=== PATIENT | female | born 1955 | race Caucasian/White ===

== ENCOUNTER 2022-01-07 10:00 | Outpatient (RCR) | payer BC, SELFPAY | END 2022-01-07 13:34 | disposition home or self-care (01) | PROVIDERS: Visit Provider Orthopaedic Surgery | DX: M25.551 Pain in right hip (principal); Z51.89 Encounter for other specified aftercare | CPT/HCPCS: 97110; 97112; 97116; 97140; 97162 ==

== ENCOUNTER 2022-07-15 13:51 | Outpatient (CLI) | payer BC, SELFPAY ==
--- NOTE | 2022-07-15 14:00 | CRLHL7_ITS ---
For Patients: As a result of the Cures Act, medical imaging exams and procedure reports are released immediately into your electronic medical record. You may view this report before your referring provider. If you have questions, please contact your health care provider. BILATERAL SCREENING MAMMOGRAM WITH COMPUTER-AIDED DETECTION AND TOMOSYNTHESIS TECHNIQUE: CC and MLO views were obtained. These mammographic images have been obtained using full-field digital technique. These mammographic images were interpreted with the benefit of computer-aided detection. Breast Tomosynthesis was used in this interpretation. COMPARISON FILM: 04/04/21, 03/28/20, 12/28/18. FINDINGS: The breasts are heterogeneously dense, which may obscure small masses IMPRESSION: There is no radiographic evidence for malignancy. ASSESSMENT: BI-RADS Category 2: Benign RECOMMENDATION: Routine screening mammogram in 1 year. A lay language report of this examination will be provided to the patient. ROB JIMENEZ M.D. Diagnostic/Nuclear Medicine Radiologist [email or web address] DIMITRI:[email or web address] Transcribed: 1:14 p.mClaudia devine/Dictated by: Rob Jimenez MD @ 07/16/2022 8:27:00 AM (Electronically Signed)
== END 2022-07-15 13:52 | disposition home or self-care (01) ==
DX: Z12.31 Encounter for screening mammogram for malignant neoplasm of breast (principal); R92.2 Inconclusive mammogram
CPT/HCPCS: 77063; 77067

== ENCOUNTER 2023-01-05 15:18 | Emergency (ER) | payer BC, SELFPAY ==
[2023-01-05] VITALS (35 sets, daily range): BP systolic 77–126; BP diastolic 32–77; PULSE 77–147; RESP 10–47; TEMP 36.7–37.2; O2SAT 93–100; BMI 21.5
--- NOTE | 2023-01-05 15:46 | ED_ITS ---
HPI - General Adult General Date Seen: 01/05/23 <Laura Nagy MD - Last Filed: 01/05/23 19:16> Chief complaint: Fever <Laura Nagy MD - Last Filed: 01/05/23 19:16> Stated complaint: Eyeball pain, jaw pain, nausea <Laura Nagy MD - Last Filed: 01/05/23 19:16> Time Seen by Provider: 01/05/23 15:28 <Laura Nagy MD - Last Filed: 01/05/23 19:16> Source: patient <Laura Nagy MD - Last Filed: 01/05/23 19:16> Mode of arrival: ambulatory <Laura Nagy MD - Last Filed: 01/05/23 19:16> Limitations: no limitations <Laura Nagy MD - Last Filed: 01/05/23 19:16> History of Present Illness HPI narrative: Patient is a 67-year-old woman who presents for evaluation of eye pain and body aches which have been present for couple of days. She says it has been keeping her up at night. She notes a history of diabetes, some liver function abnormalities with a follow-up biopsy which she says was unremarkable. She has a history of pain for which she takes hydrocodone prescribed by her primary doctor who was at a clinic in [place]. She says she took hydrocodone earlier today in the form of Vicodin, she does tell me that she can not take Tylenol because of her liver, but does take Vicodin. She has not had a fever that she is aware of, denies respiratory symptoms, has pain with movement of her eyes bilaterally, denies any diplopia there is no eye redness or swelling. She does note some photophobia. No visual changes. No joint swelling or redness, just generalized aches in multiple joints. Her jaw hurts on both sides as well. <Laura Nagy MD - Last Filed: 01/05/23 19:16> Related Data Home medications: Home Medications Medication Instructions Recorded Confirmed acetaminophen 500 mg tablet 500 mg PO PRN 01/29/22 01/29/22 alprazolam 0.5 mg tablet 0.5 mg PO .Bedtime as needed PRN 01/29/22 01/29/22 amitriptyline 25 mg tablet 25 mg PO .Bedtime 01/29/22 01/29/22 ascorbic acid (vitamin C) 500 mg 500 mg PO DAILY 01/29/22 01/29/22 tablet aspirin 81 mg chewable tablet 81 mg PO BID 01/29/22 01/29/22 atorvastatin 80 mg tablet 80 mg PO .Bedtime 01/29/22 01/29/22 bupropion HCl 75 mg tablet mg PO BID 01/29/22 01/29/22 calcium carbonate 500 mg calcium 500 mg PO DAILY 01/29/22 01/29/22 (1,250 mg) tablet celecoxib 200 mg capsule 200 mg PO DAILY 01/29/22 01/29/22 cholecalciferol (vitamin D3) 25 PO DAILY 01/29/22 01/29/22 mcg (1,000 unit) tablet cyanocobalamin (vitamin B-12) 1,000 mcg PO .2X/Week 01/29/22 01/29/22 1,000 mcg tablet ferrous sulfate 325 mg (65 mg 325 mg PO DAILY 01/29/22 01/29/22 iron) tablet levothyroxine 125 mcg tablet 125 mcg PO DAILY 01/29/22 01/29/22 lisinopril 20 mg tablet 20 mg PO DAILY 01/29/22 01/29/22 metformin 500 mg tablet 500 mg PO 01/29/22 01/29/22 Previous Rx's Medication Instructions Recorded celecoxib 100 mg capsule 100 mg PO BID PRN pain #90 caps 01/29/22 rivaroxaban 20 mg tablet 20 mg PO DAILY #30 tabs 01/05/23 <Laura Nagy MD - Last Filed: 01/05/23 19:16> Allergies/adverse reactions: Allergies Allergy/AdvReac Type Severity Reaction Status Date / Time No Known Drug Allergies Allergy Verified 01/27/22 08:25 <Laura Nagy MD - Last Filed: 01/05/23 19:16> Review of Systems Status of ROS: Reports: 10 or more systems reviewed and unremarkable except as noted in History and below <Laura Nagy MD - Last Filed: 01/05/23 19:16> [facility] Medical History: Medical History Tobacco use (10/18/06) ?Z72.0 - Tobacco use (ICD-10) Seasonal allergies (10/18/06) ?J30.2 - Other seasonal allergic rhinitis (ICD-10) Ankle fracture, right (10/18/06) ?S82.891A - Other fracture of right lower leg, initial encounter for closed fracture (ICD-10) Hyperlipidemia (10/18/06) ?E78.5 - Hyperlipidemia, unspecified (ICD-10) Fracture of right femur ?S72.91XA - Unspecified fracture of right femur, initial encounter for closed fracture (ICD-10) Elevated liver function tests ?R79.89 - Other specified abnormal findings of blood chemistry (ICD-10) Constipation ?K59.00 - Constipation, unspecified (ICD-10) Back pain ?M54.9 - Dorsalgia, unspecified (ICD-10) Abdominal pain ?R10.9 - Unspecified abdominal pain (ICD-10) Liver failure ?K72.90 - Hepatic failure, unspecified without coma (ICD-10) Anxiety ?F41.9 - Anxiety disorder, unspecified (ICD-10) Depression ?F32.A - Depression, unspecified (ICD-10) Diabetes ?E11.9 - Type 2 diabetes mellitus without complications (ICD-10) Hypertension ?I10 - Essential (primary) hypertension (ICD-10) Hypothyroid ?E03.9 - Hypothyroidism, unspecified (ICD-10) <Laura Nagy MD - Last Filed: 01/05/23 19:16> Surgical History: Surgical History History of open reduction and internal fixation (ORIF) procedure ?Z98.890 - Other specified postprocedural states (ICD-10) History of gastric bypass ?Z98.84 - Bariatric surgery status (ICD-10) History of cataract surgery ?Z98.49 - Cataract extraction status, unspecified eye (ICD-10) H/O: hysterectomy ?Z90.710 - Acquired absence of both cervix and uterus (ICD-10) History of cholecystectomy ?Z90.49 - Acquired absence of other specified parts of digestive tract (ICD- 10) Hx of appendectomy ?Z90.49 - Acquired absence of other specified parts of digestive tract (ICD- 10) <Laura Nagy MD - Last Filed: 01/05/23 19:16> Social History: Social History Smoking Status: Former smoker Non-prescribed substance use: denies use <Laura Nagy MD - Last Filed: 01/05/23 19:16> Exam Narrative: Exam Narrative: Vital signs as noted above. In general, an alert, nontoxic woman, seems little agitated. Head: Normocephalic, atraumatic. Eyes: Pupils are equal reactive. Extraocular movements are full though she complains of pain. Conjunctivae are normal, no injection or discharge. Lids and surrounding tissues are normal. ENT: Mucous membranes are moist. Throat is normal. Cheeks are slightly damián. Dentition intact. No trismus. No significant tenderness. Neck: Supple without lymphadenopathy. Heart: Regular rate and rhythm. No murmur or rub. Lungs: Clear bilaterally. No increased work of breathing, crackles or wheezes. Abdomen: Soft and nontender. No organomegaly. Extremities: Well perfused. No edema. No calf tenderness. Pulses intact. No evidence of inflammatory arthritis. Neurologic: Patient is alert and oriented to person and place. Speech is fluent. Face is symmetric. Moves all extremities equally. Affect: Agitated. Skin: Warm and dry. Well perfused. No rash or lesion. <Laura Nagy MD - Last Filed: 01/05/23 19:16> Const: Vital Signs, click to edit/add: Vital Signs - 24 hr 01/05/23 15:25 01/05/23 16:22 01/05/23 16:26 Temperature 99.0 F 99.0 F Pulse Rate 138 H Pulse Rate [Right Pulse Oximeter] 92 147 H Respiratory Rate 18 16 Blood Pressure Blood Pressure [Ri ght Upper Arm] 105/69 101/73 Pulse Oximetry 97 96 94 Oxygen Delivery Me thod Room Air Oxygen Flow Rate 01/05/23 16:30 01/05/23 16:33 01/05/23 16:45 Temperature Pulse Rate 136 H 134 H Pulse Rate [Right Pulse Oximeter] Respiratory Rate Blood Pressure Blood Pressure [Ri ght Upper Arm] Pulse Oximetry 95 96 95 Oxygen Delivery Me thod Oxygen Flow Rate 01/05/23 16:46 01/05/23 16:52 01/05/23 17:00 Temperature Pulse Rate 121 H 119 H 126 H Pulse Rate [Right Pulse Oximeter] Respiratory Rate Blood Pressure 103/66 84/63 L 81/45 L Blood Pressure [Ri ght Upper Arm] Pulse Oximetry 95 97 93 Oxygen Delivery Me thod Oxygen Flow Rate 01/05/23 17:01 01/05/23 17:15 01/05/23 17:22 Temperature 98.0 F Pulse Rate 113 H 123 H Pulse Rate [Right Pulse Oximeter] Respiratory Rate Blood Pressure Blood Pressure [Ri ght Upper Arm] Pulse Oximetry 95 94 Oxygen Delivery Me thod Oxygen Flow Rate 01/05/23 17:26 01/05/23 17:30 01/05/23 17:34 Temperature Pulse Rate 120 H 121 H Pulse Rate [Right Pulse Oximeter] Respiratory Rate 20 Blood Pressure 78/66 L 79/53 L Blood Pressure [Ri ght Upper Arm] Pulse Oximetry 94 94 Oxygen Delivery Me thod Oxygen Flow Rate 01/05/23 17:35 01/05/23 17:45 01/05/23 17:47 Temperature Pulse Rate 123 H Pulse Rate [Right Pulse Oximeter] Respiratory Rate 27 H 26 H 25 H Blood Pressure 104/68 77/32 L Blood Pressure [Ri ght Upper Arm] Pulse Oximetry 97 Oxygen Delivery Me thod Oxygen Flow Rate 01/05/23 17:48 01/05/23 17:53 01/05/23 17:54 Temperature Pulse Rate 135 H 129 H Pulse Rate [Right Pulse Oximeter] Respiratory Rate 24 17 Blood Pressure 113/55 L Blood Pressure [Ri ght Upper Arm] Pulse Oximetry 98 97 97 Oxygen Delivery Me thod Nasal Cannula Oxygen Flow Rate 4 01/05/23 17:56 01/05/23 18:00 01/05/23 18:01 Temperature Pulse Rate 133 H 128 H 130 H Pulse Rate [Right Pulse Oximeter] Respiratory Rate 11 L 26 H 23 Blood Pressure 104/71 97/57 L Blood Pressure [Ri ght Upper Arm] Pulse Oximetry 97 97 97 Oxygen Delivery Me thod Oxygen Flow Rate 01/05/23 18:06 01/05/23 18:11 01/05/23 18:13 Temperature Pulse Rate 140 H 129 H 116 H Pulse Rate [Right Pulse Oximeter] Respiratory Rate 26 H 25 H 25 H Blood Pressure 85/63 L 77/54 L 85/59 L Blood Pressure [Ri ght Upper Arm] Pulse Oximetry 98 98 98 Oxygen Delivery Me thod Oxygen Flow Rate 01/05/23 18:15 01/05/23 18:17 01/05/23 18:21 Temperature Pulse Rate 129 H 86 88 Pulse Rate [Right Pulse Oximeter] Respiratory Rate 10 L 18 47 H Blood Pressure 126/75 121/77 Blood Pressure [Ri ght Upper Arm] Pulse Oximetry 98 97 100 Oxygen Delivery Me thod Oxygen Flow Rate 01/05/23 18:22 01/05/23 18:26 01/05/23 18:30 Temperature Pulse Rate 86 81 79 Pulse Rate [Right Pulse Oximeter] Respiratory Rate 31 H 19 14 Blood Pressure 96/73 Blood Pressure [Ri ght Upper Arm] Pulse Oximetry 100 100 99 Oxygen Delivery Me thod Oxygen Flow Rate 01/05/23 18:31 01/05/23 18:36 Temperature Pulse Rate 78 77 Pulse Rate [Right Pulse Oximeter] Respiratory Rate 14 Blood Pressure 110/67 97/71 Blood Pressure [Ri ght Upper Arm] Pulse Oximetry 99 98 Oxygen Delivery Me thod Oxygen Flow Rate <Laura Nagy MD - Last Filed: 01/05/23 19:16> Vital Signs, click to edit/add: Vital Signs - 24 hr 01/05/23 15:25 01/05/23 16:22 01/05/23 16:26 Temperature 99.0 F 99.0 F Pulse Rate 138 H Pulse Rate [Right Pulse Oximeter] 92 147 H Respiratory Rate 18 16 Blood Pressure Blood Pressure [Ri ght Upper Arm] 105/69 101/73 Pulse Oximetry 97 96 94 Oxygen Delivery Me thod Room Air Oxygen Flow Rate 01/05/23 16:30 01/05/23 16:33 01/05/23 16:45 Temperature Pulse Rate 136 H 134 H Pulse Rate [Right Pulse Oximeter] Respiratory Rate Blood Pressure Blood Pressure [Ri ght Upper Arm] Pulse Oximetry 95 96 95 Oxygen Delivery Me thod Oxygen Flow Rate 01/05/23 16:46 01/05/23 16:52 01/05/23 17:00 Temperature Pulse Rate 121 H 119 H 126 H Pulse Rate [Right Pulse Oximeter] Respiratory Rate Blood Pressure 103/66 84/63 L 81/45 L Blood Pressure [Ri ght Upper Arm] Pulse Oximetry 95 97 93 Oxygen Delivery Me thod Oxygen Flow Rate 01/05/23 17:01 01/05/23 17:15 01/05/23 17:22 Temperature 98.0 F Pulse Rate 113 H 123 H Pulse Rate [Right Pulse Oximeter] Respiratory Rate Blood Pressure Blood Pressure [Ri ght Upper Arm] Pulse Oximetry 95 94 Oxygen Delivery Me thod Oxygen Flow Rate 01/05/23 17:26 01/05/23 17:30 01/05/23 17:34 Temperature Pulse Rate 120 H 121 H Pulse Rate [Right Pulse Oximeter] Respiratory Rate 20 Blood Pressure 78/66 L 79/53 L Blood Pressure [Ri ght Upper Arm] Pulse Oximetry 94 94 Oxygen Delivery Me thod Oxygen Flow Rate 01/05/23 17:35 01/05/23 17:45 01/05/23 17:47 Temperature Pulse Rate 123 H Pulse Rate [Right Pulse Oximeter] Respiratory Rate 27 H 26 H 25 H Blood Pressure 104/68 77/32 L Blood Pressure [Ri ght Upper Arm] Pulse Oximetry 97 Oxygen Delivery Me thod Oxygen Flow Rate 01/05/23 17:48 01/05/23 17:53 01/05/23 17:54 Temperature Pulse Rate 135 H 129 H Pulse Rate [Right Pulse Oximeter] Respiratory Rate 24 17 Blood Pressure 113/55 L Blood Pressure [Ri ght Upper Arm] Pulse Oximetry 98 97 97 Oxygen Delivery Me thod Nasal Cannula Oxygen Flow Rate 4 01/05/23 17:56 01/05/23 18:00 01/05/23 18:01 Temperature Pulse Rate 133 H 128 H 130 H Pulse Rate [Right Pulse Oximeter] Respiratory Rate 11 L 26 H 23 Blood Pressure 104/71 97/57 L Blood Pressure [Ri ght Upper Arm] Pulse Oximetry 97 97 97 Oxygen Delivery Me thod Oxygen Flow Rate 01/05/23 18:06 01/05/23 18:11 01/05/23 18:13 Temperature Pulse Rate 140 H 129 H 116 H Pulse Rate [Right Pulse Oximeter] Respiratory Rate 26 H 25 H 25 H Blood Pressure 85/63 L 77/54 L 85/59 L Blood Pressure [Ri ght Upper Arm] Pulse Oximetry 98 98 98 Oxygen Delivery Me thod Oxygen Flow Rate 01/05/23 18:15 01/05/23 18:17 01/05/23 18:21 Temperature Pulse Rate 129 H 86 88 Pulse Rate [Right Pulse Oximeter] Respiratory Rate 10 L 18 47 H Blood Pressure 126/75 121/77 Blood Pressure [Ri ght Upper Arm] Pulse Oximetry 98 97 100 Oxygen Delivery Me thod Oxygen Flow Rate 01/05/23 18:22 01/05/23 18:26 01/05/23 18:30 Temperature Pulse Rate 86 81 79 Pulse Rate [Right Pulse Oximeter] Respiratory Rate 31 H 19 14 Blood Pressure 96/73 Blood Pressure [Ri ght Upper Arm] Pulse Oximetry 100 100 99 Oxygen Delivery Me thod Oxygen Flow Rate 01/05/23 18:31 01/05/23 18:36 Temperature Pulse Rate 78 77 Pulse Rate [Right Pulse Oximeter] Respiratory Rate 14 Blood Pressure 110/67 97/71 Blood Pressure [Ri ght Upper Arm] Pulse Oximetry 99 98 Oxygen Delivery Me thod Oxygen Flow Rate <Brennan Warren MD - Last Filed: 01/05/23 19:00> Documenting provider has reviewed patient's vital signs: yes <Laura Nagy MD - Last Filed: 01/05/23 19:16> Course Course ED Course: At the time of my initial exam, patient's heart was regular, without tachycardia. I ordered an EKG at the time of her EKG she had gone into atrial fibrillation with a rapid ventricular rate of 147 beats per minute. Blood pressure at that time was about 100 systolic. I did try rate control with some diltiazem, rate came down to the 120s but her blood pressure also was down in the 80s after that. She felt fine, she does have the ability to tell when she goes into atrial fibrillation, she says she has had this before but has never lasted long enough for her to go in to be seen for it. She has talked with her primary doctor about it in the past and was told if she ever felt the symptoms again that she should come into the ER. She has not noticed symptoms for at least a few months. With regard to her eye pain and body aches, visual acuity was checked and was 20 30 in both eyes. Her white blood cell count is normal at 8.27, hemoglobin is normal, CRP was 1.1 and sed rate was 7. COVID was negative. Metabolic panel normal aside from a CO2 of 18. She had a L of normal saline and Toradol. Body aches are improved although she says her eye still hurt when she looks around. Notably, she has no visual changes, she does not have any diplopia, and does not have any findings on exam. I did talk with Dr. Juanito Parish was on-call for [facility]. She agrees that at this point there does not appear to be a clear indication for imaging. I have reviewed all this with the patient and stressed that if she has worsening, develops double vision, redness of the eyes, blurred vision etcetera she needs to come back. Otherwise, [facility] will call her tomorrow to get her in to clinic on . She remained in atrial fibrillation with a rapid rate. Given that time of onset was clearly known, I discussed the option of cardioversion versus observation for couple of hours. She opted for cardioversion. Risks and benefits were discussed including over-sedation, need for airway management, aspiration, failure to convert. She agreed to proceed, consent was signed. Dr. Warren provided sedation, please see his note. We opted to use etomidate given that her blood pressure was still on the low side. She was cardioverted at 200 joules, biphasic synchronized and converted without difficulty to normal sinus rhythm with a rate in the 80s. An EKG was repeated, there is quite a bit of artifact but she is clearly in sinus and no acute ST segment changes are seen. She is feeling well at this time, and is comfortable with discharge. Etiology of her body aches and eye pain is unclear at this time though it may be viral. In the setting of normal inflammatory markers I do not think this represents temporal arteritis or likely connective tissue disorder. With regard to her atrial fibrillation and cardioversion I recommended that we at least start her on anticoagulation, her chads Vasc score is 4, and she can discuss that further with her primary doctor when she sees her next Wednesday. <Laura Nagy MD - Last Filed: 01/05/23 19:16> Vital Signs Vital signs: Initial Vital Signs Temperature 99.0 F 01/05/23 15:25 Temperature Source Temporal Artery Scan 01/05/23 15:25 Pulse Rate 92 01/05/23 15:25 Respiratory Rate 18 01/05/23 15:25 Blood Pressure 105/69 01/05/23 15:25 Blood Pressure Mean 81 01/05/23 15:25 Blood Pressure Position Sitting 01/05/23 15:25 Pulse Oximetry 97 01/05/23 15:25 Oxygen Delivery Method Room Air 01/05/23 15:25 Vital Signs Temperature 99.0 F 01/05/23 15:25 Pulse Rate 92 01/05/23 15:25 Respiratory Rate 18 01/05/23 15:25 Blood Pressure 105/69 01/05/23 15:25 Pulse Oximetry 97 01/05/23 15:25 Oxygen Delivery Method Room Air 01/05/23 15:25 Temperature 98.0 F 01/05/23 17:22 Pulse Rate 77 01/05/23 18:36 Respiratory Rate 14 01/05/23 18:31 Blood Pressure 97/71 01/05/23 18:36 Pulse Oximetry 98 01/05/23 18:36 Oxygen Delivery Method Nasal Cannula 01/05/23 17:54 Oxygen Flow Rate 4 01/05/23 17:54 <Laura Nagy MD - Last Filed: 01/05/23 19:16> Initial Vital Signs Temperature 99.0 F 01/05/23 15:25 Temperature Source Temporal Artery Scan 01/05/23 15:25 Pulse Rate 92 01/05/23 15:25 Respiratory Rate 18 01/05/23 15:25 Blood Pressure 105/69 01/05/23 15:25 Blood Pressure Mean 81 01/05/23 15:25 Blood Pressure Position Sitting 01/05/23 15:25 Pulse Oximetry 97 01/05/23 15:25 Oxygen Delivery Method Room Air 01/05/23 15:25 Vital Signs Temperature 99.0 F 01/05/23 15:25 Pulse Rate 92 01/05/23 15:25 Respiratory Rate 18 01/05/23 15:25 Blood Pressure 105/69 01/05/23 15:25 Pulse Oximetry 97 01/05/23 15:25 Oxygen Delivery Method Room Air 01/05/23 15:25 Temperature 98.0 F 01/05/23 17:22 Pulse Rate 77 01/05/23 18:36 Respiratory Rate 14 01/05/23 18:31 Blood Pressure 97/71 01/05/23 18:36 Pulse Oximetry 98 01/05/23 18:36 Oxygen Delivery Method Nasal Cannula 01/05/23 17:54 Oxygen Flow Rate 4 01/05/23 17:54 <Brennan Warren MD - Last Filed: 01/05/23 19:00> Medical Decision Making Lab Data Labs: Lab Results 01/05/23 01/05/23 01/05/23 Range/Units 14:45 15:50 15:55 WBC 8.27 (4.50-11.00) K/uL RBC 4.58 (4.00-5.20) m/uL Hgb 14.6 (12.0-16.0) gm/dL Hct 44.2 (33.0-51.0) % MCV 97 (80-100) fL MCH 32 (26-34) pg MCHC 33 (32-36) gm/dL RDW Coeff of Jose 12.9 (11.5-15.5) % Plt Count 279 (140-440) K/uL Neut % (Auto) 83.4 H (42.0-72.0) % Lymph % (Auto) 10.8 L (20-44) % [place] % (Auto) 4.7 (0.0-11.0) % Eos % (Auto) 0.7 (0.0-7.0) % Baso % (Auto) 0.2 (0.0-3.0) % Neut # (Auto) 6.90 (1.7-7.0) K/uL Lymph # (Auto) 0.90 (0.90-2.90) K/uL [place] # (Auto) 0.40 (0.00-0.90) K/UL Eos # (Auto) 0.06 (0.00-0.50) K/uL Baso # (Auto) 0.02 (0.00-0.30) K/uL Abs Immat Gran (auto) 0.02 (0.00-0.30) K/uL Imm/Tot Granulo (auto) 0.2 % ESR 7 (2-20) mm/hr Sodium 135 (135-149) mmol/L Potassium 3.6 (3.6-5.1) mmol/L Chloride 104 (96-114) mmol/L Carbon Dioxide 18 L (20-32) mmol/L Anion Gap 13 (7-15) mEq/L BUN 16 (7-30) mg/dL Creatinine 0.5 (0.5-1.5) mg/dL Estimated Creat Clear 58.64 Estimated GFR 103 ml/min Glucose 126 H (60-115) mg/dL Calcium 8.7 (8.4-10.6) mg/dL C-Reactive Protein 1.1 H (0.5-1.0) mg/dL SARS-CoV-2 (PCR) Negative SARS-CoV-2 (Negative) Influenza Type A (PCR) Negative PCR FLU A (Negative) Influenza Type B (PCR) Negative PCR FLU B (Negative) RSV (PCR) Negative PCR RSV (Negative) POC Troponin I 0.00 L (0.01-0.04) ng/ml <Laura Nagy MD - Last Filed: 01/05/23 19:16> Lab Results 01/05/23 01/05/23 01/05/23 Range/Units 14:45 15:50 15:55 WBC 8.27 (4.50-11.00) K/uL RBC 4.58 (4.00-5.20) m/uL Hgb 14.6 (12.0-16.0) gm/dL Hct 44.2 (33.0-51.0) % MCV 97 (80-100) fL MCH 32 (26-34) pg MCHC 33 (32-36) gm/dL RDW Coeff of Jose 12.9 (11.5-15.5) % Plt Count 279 (140-440) K/uL Neut % (Auto) 83.4 H (42.0-72.0) % Lymph % (Auto) 10.8 L (20-44) % [place] % (Auto) 4.7 (0.0-11.0) % Eos % (Auto) 0.7 (0.0-7.0) % Baso % (Auto) 0.2 (0.0-3.0) % Neut # (Auto) 6.90 (1.7-7.0) K/uL Lymph # (Auto) 0.90 (0.90-2.90) K/uL [place] # (Auto) 0.40 (0.00-0.90) K/UL Eos # (Auto) 0.06 (0.00-0.50) K/uL Baso # (Auto) 0.02 (0.00-0.30) K/uL Abs Immat Gran (auto) 0.02 (0.00-0.30) K/uL Imm/Tot Granulo (auto) 0.2 % ESR 7 (2-20) mm/hr Sodium 135 (135-149) mmol/L Potassium 3.6 (3.6-5.1) mmol/L Chloride 104 (96-114) mmol/L Carbon Dioxide 18 L (20-32) mmol/L Anion Gap 13 (7-15) mEq/L BUN 16 (7-30) mg/dL Creatinine 0.5 (0.5-1.5) mg/dL Estimated Creat Clear 58.64 Estimated GFR 103 ml/min Glucose 126 H (60-115) mg/dL Calcium 8.7 (8.4-10.6) mg/dL C-Reactive Protein 1.1 H (0.5-1.0) mg/dL SARS-CoV-2 (PCR) Negative SARS-CoV-2 (Negative) Influenza Type A (PCR) Negative PCR FLU A (Negative) Influenza Type B (PCR) Negative PCR FLU B (Negative) RSV (PCR) Negative PCR RSV (Negative) POC Troponin I 0.00 L (0.01-0.04) ng/ml <Brennan Warren MD - Last Filed: 01/05/23 19:00> Discharge Plan Discharge Clinical Impression: Eye pain, Body aches, Atrial fibrillation with rapid ventricular response <Laura Nagy MD - Last Filed: 01/05/23 19:16> Patient Disposition: Home, Self-Care <Laura Nagy MD - Last Filed: 01/05/23 19:16> Condition: Improved <Laura Nagy MD - Last Filed: 01/05/23 19:16> Instructions: A-fib (Atrial Fibrillation) (ED), Eye Pain (ED) <Laura Nagy MD - Last Filed: 01/05/23 19:16> Additional Instructions: Someone from the Eye Clinic should be calling tomorrow to arrange follow- up for recheck of your eyes. With regard here atrial fibrillation, I would recommend that we have you on a blood thinner for at least the next month. I have prescribed this for you. You can discuss further anticoagulation with your primary doctor at your next visit. If you have recurrent palpitations, chest pain, shortness of breath or other worsening return to the emergency department at any time. Your visual acuity today was 20/30 in both eyes peer <Laura Nagy MD - Last Filed: 01/05/23 19:16> Prescriptions: New rivaroxaban 20 mg tablet 20 mg PO DAILY Qty: 30 2RF Rx Instructions: must administer with evening meal No Action cholecalciferol (vitamin D3) 25 mcg (1,000 unit) tablet PO DAILY bupropion HCl 75 mg tablet PO BID levothyroxine 125 mcg tablet 125 mcg PO DAILY ferrous sulfate 325 mg (65 mg iron) tablet 325 mg PO DAILY ascorbic acid (vitamin C) 500 mg tablet 500 mg PO DAILY calcium carbonate 500 mg calcium (1,250 mg) tablet 500 mg PO DAILY amitriptyline 25 mg tablet 25 mg PO .Bedtime alprazolam 0.5 mg tablet 0.5 mg PO .Bedtime as needed PRN cyanocobalamin (vitamin B-12) 1,000 mcg tablet 1,000 mcg PO .2X/Week lisinopril 20 mg tablet 20 mg PO DAILY atorvastatin 80 mg tablet 80 mg PO .Bedtime metformin 500 mg tablet 500 mg PO celecoxib 200 mg capsule 200 mg PO DAILY aspirin 81 mg tablet,chewable 81 mg PO BID Rx Instructions: Start aspirin after rivaroxaban is done in 3 days acetaminophen 500 mg tablet 500 mg PO PRN celecoxib 100 mg capsule 100 mg PO BID PRN (Reason: pain) Qty: 90 0RF <Laura Nagy MD - Last Filed: 01/05/23 19:16> Follow Up/Referrals: Provider,Not a Local [Primary Care Provider] - <Laura Nagy MD - Last Filed: 01/05/23 19:16> [facility] <Laura Nagy MD - Last Filed: 01/05/23 19:16> Procedures Procedural Sedation Pre procedure diagnosis: Atrial fibrillation with RVR and hypotension <Brennan Warren MD - Last Filed: 01/05/23 19:00> Post procedure diagnosis: Sinus rhythm <Brennan Warren MD - Last Filed: 01/05/23 19:00> Verification/time out: correct patient and correct procedure <Brennan Warren MD - Last Filed: 01/05/23 19:00> Name of person perfmorming the procedure: Brennan Warren <Brennan Warren MD - Last Filed: 01/05/23 19:00> Sedation provider same as procedural provider: No <Brennan Warren MD - Last Filed: 01/05/23 19:00> Indication: other (Electrical cardioversion) <Brennan Warren MD - Last Filed: 01/05/23 19:00> Presedation Evaluation: Constitutional: Appears well-developed and well-nourished. Alert. Conversant. Non toxic. HENT: Head: Atraumatic. Nose: Nose normal. Mouth/Throat: Oral mucosa is clear and moist. no trismus. Pharynx normal. Tonsils symmetric. No tonsillar enlargement, erythema, or exudate. Mallampati class 2 Eyes: Conjunctivae normal. EOM normal. Pupils equal, round, and reactive to l ight. No scleral icterus. Neck: Normal range of motion. Neck supple. No tracheal deviation present. Normal range of motion. Cardiovascular: Tachycardic, irregularly irregular rhythm. No gallop. No friction rub. No murmur heard. Symmetric radial artery pulses . Normal capillary refill in toes and fingers. Pulmonary/Chest: Effort normal. No stridor. No respiratory distress. No wheezes. No rales. No rhonchi . No tenderness. g. Musculoskeletal: RUE: Normal range of motion. No tenderness. No deformity LUE: Normal range of motion. No tenderness. No deformity RLE: Normal range of motion. No edema. No tenderness. No deformity LLE: Normal range of motion. No edema. No tenderness. No deformity Lymph: No cervical adenopathy. Neurological: Alert and oriented to person, place, and time. Normal strength. CN II-VII intact. No sensory deficit. GCS eye subscore is 4. GCS verbal subscore is 5. GCS motor subscore is 6. Psychiatric: Normal mood. Normal affect. <Brennan Warren MD - Last Filed: 01/05/23 19:00> Time of Last PO Intake: 14:00 <Brennan Warren MD - Last Filed: 01/05/23 19:00> Mallampati classification: II. soft palate, fauces, uvula visible <Brennan Warren MD - Last Filed: 01/05/23 19:00> Preparation: bus driver/monitor applied, pulse oximeter, capnometry used, supplemental O2 applied, reversal agents at bedside, suction/airway equipment at bedside and IV secured <Brennan Warren MD - Last Filed: 01/05/23 19:00> IV Etomidate dose (mg): 20 <Brennan Warren MD - Last Filed: 01/05/23 19:00> Patient Tolerated Procedure: well and no complications <Brennan Warren MD - Last Filed: 01/05/23 19:00> Complications: none <Brennan Warren MD - Last Filed: 01/05/23 19:00> Interventions: airway repositioned <Brennan Warren MD - Last Filed: 01/05/23 19:00>
--- OUTSIDE RECORDS SUMMARY | 2023-01-05 15:49 | XMS_ITS | Patient Health Record ---
Author Name Unknown Organization [facility] S Address [address] [id number] Care Team Providers Care Sharepoint Application Developer Name Role Phone Herminia Rabago PA-C Primary Care Provider ALLERGIES No Known Allergies RESULTS Component Value Reference Range Notes GLYCOSYLATED HGB A1C Reviewed date:01/28/2022 09:43:41 AM Interpretation:6.2 Performing Lab: Notes/Report: HGB A1C 6.2 4.2-6.1 % Ultrasound : Abdominal Aorta Screening (AAA) Reviewed date:07/14/2022 02:23:46 PM Interpretation:infrarenal aortic aneurysm, repeat in 3 years Performing Lab: Notes/Report: infrarenal aortic aneurysm, repeat in 3 years PREMIER URINE DRUG SCREEN Reviewed date:08/24/2022 12:04:41 PM Interpretation: Performing Lab: Notes/Report: AMP - Amphetamine Negative Cutoff 500 (ng/mL) BAR - Barbituates Negative Cutoff 300 (ng/mL) BUP - Buprenorphrine Negative Cutoff 10 (ng/mL) BZO - Benzodiazepines Negative Cutoff 300 (ng/mL) JACINTA - Cocaine Negative Cutoff 150 (ng/mL) EDDP- Methadone Negative Cutoff 300 (ng/mL) MDMA - Ecstasy Negative Cutoff 500 (ng/mL) MET - Methamphetamine Negative Cutoff 500 (ng/mL) OPI - Opiates POSITIVE Cutoff 2,000 (ng/mL) OXY - Oxycodone Negative Cutoff 100 (ng/mL) PCP - Phencycline Negative Cutoff 25 (ng/mL) THC - Marijuana POSITIVE Cutoff 50 (ng/mL) Preliminary Results, Confirmatory Testing Available Upon Request - Specific [place] (Premier) 1.015 1.003-1.030 - PH 4.0 4.0-9.0 - OX (Oxidant) Normal Normal - Internal QC OK Ultrasound : Right Upper Jaime drmarlyn Reviewed date:09/30/2022 11:30:54 AM Interpretation: Performing Lab: Notes/Report: See Below For Report COMPREHENSIVE METABOLIC Reviewed date:10/02/2022 04:16:18 PM Interpretation:AST-81, ALT-312 Performing Lab: Notes/Report: Sodium 142 136-145 mmol/L Potassium 4.8 3.4-5.3 mmol/L Chloride 105 98-107 mmol/L Carbon Dioxide (CO2) 27 22-29 mmol/L Anion Gap 10 7-15 mmol/L Urea Nitrogen 8.8 8.0-23.0 mg/dL Creatinine 0.64 0.51-0.95 mg/dL Calcium 8.8 8.8-10.2 mg/dL Glucose 129 70-99 mg/dL Alkaline Phosphatase 98 35-104 U/L AST 81 0-45 U/L Reference inter vals for this test were updated on 08/31/2022 to more accurately reflect our healthy population. There may be differences in the flagging of prior results with similar values performed with this method. Interpretation of those prior results can be made in the context of the updated reference intervals. ALT 312 0-50 U/L Reference inter vals for this test were updated on 08/31/2022 to more accurately reflect our healthy population. There may be differences in the flagging of prior results with similar values performed with this method. Interpretation of those prior results can be made in the context of the updated reference intervals. Protein Total 6.2 6.4-8.3 g/dL Albumin 4.3 3.5-5.2 g/dL Bilirubin Total 0.3 <=1.2 mg/dL GFR Estimate >90 >60 mL/min/1.73m2 PERFORMED BY: [facility], [place] [address] [place] [id number],[facility] [id number] . CBC with Platelets And Diffe rential Reviewed date:10/02/2022 04:17:08 PM Interpretation: Performing Lab: Notes/Report: WBC Count 8.3 4.0-11.0 10e3/uL RBC Count 4.24 3.80-5.20 10e6/uL Hemoglobin 13.7 11.7-15.7 g/dL Hematocrit 43.9 35.0-47.0 % MCV 104 78-100 fL MCH 32.3 26.5-33.0 pg MCHC 31.2 31.5-36.5 g/dL RDW 12.8 10.0-15.0 % Platelet Count 316 150-450 10e3/uL % Neutrophils 61 % Lymphocytes 26 % Monocytes 8 % Eosinophils 4 % Basophils 1 % Immature Granulocytes 0 NRBCs per 100 WBC 0 <1 /100 Absolute Neutrophils 5.0 1.6-8.3 10e3/uL Absolute Lymphocytes 2.2 0.8-5.3 10e3/uL Absolute Monocytes 0.7 0.0-1.3 10e3/uL Absolute Eosinophils 0.3 0.0-0.7 10e3/uL Absolute Basophils 0.1 0.0-0.2 10e3/uL Absolute Immature Granulocytes 0.0 <=0.4 10e3/uL Absolute NRBCs 0.0 PERFORMED BY: [facility], [place] [address] [place] [id number],[facility] [id number] . Hepatitis B Surface Antigen Reviewed date:10/02/2022 04:16:35 PM Interpretation:negative Performing Lab: Notes/Report: Hepatitis B Surface Antigen Nonreactive Nonreactive PERFORMED BY: [facility], Specialty Lab [address] [place] [id number] Hepatitis C Antibody Reviewed date:10/02/2022 04:16:50 PM Interpretation:negative Performing Lab: Notes/Report: Hepatitis C Antibody Nonreactive Nonreactive Assay performance characteristics have not been established for newborns, infants, and children. PERFORMED BY: [facility], [facility] [address] [place] [id number] Ultrasound : Abdominal Aorta Screening (AAA) Reviewed date:07/14/2022 01:24:27 PM Interpretation:infrarenal aortic aneurysm, repeat in 3 years Performing Lab: Notes/Report: See Below For Report Diabetic Eye Exam Reviewed date:09/18/2022 09:55:17 AM Interpretation:Abnormal Performing Lab: Notes/Report: Abnormal Colonoscopy Reviewed date:10/05/2022 02:03:00 PM Interpretation:repeat in 5 years Performing Lab: Notes/Report: repeat in 5 years LIPID CASCADE Reviewed date:08/25/2022 11:36:10 AM Interpretation: Performing Lab: Notes/Report: Cholesterol 127 <200 mg/dL Triglycerides 124 <150 mg/dL Direct Measure HDL 75 >=50 mg/dL LDL Cholesterol Calculated 27 <=100 mg/dL Non HDL Cholesterol 52 <130 mg/dL Cholesterol Desirable: <200 mg/dL Triglycerides Normal: Less than 150 mg/dL Borderline High: 150-199 mg/dL High: 200-499 mg/dL Very High: Greater than or equal to 500 mg/dL Direct Measure HDL Female: Greater than or equal to 50 mg/dL Male: Greater than or equal to 40 mg/dL LDL Cholesterol Desirable: <100mg/dL Above Desirable: 100-129 mg/dL Borderline High: 130-159 mg/dL High: 160-189 mg/dL Very High: >= 190 mg/dL Non HDL Cholesterol Desirable: 130 mg/dL Above Desirable: 130-159 mg/dL Borderline High: 160-189 mg/dL High: 190-219 mg/dL Very High: Greater than or equal to 220 mg/dL PERFORMED BY: [facility], [address] [id number],[facility] [id number] . GLYCOSYLATED HGB A1C Reviewed date:08/24/2022 12:00:34 PM Interpretation:6.7 Performing Lab: Notes/Report: HGB A1C 6.7 4.2-6.1 % COMPREHENSIVE METABOLIC Reviewed date:08/25/2022 11:42:10 AM Interpretation:AST-130, ALT-179 Performing Lab: Notes/Report: Sodium 141 136-145 mmol/L Potassium 3.9 3.4-5.3 mmol/L Chloride 107 98-107 mmol/L Carbon Dioxide (CO2) 22 22-29 mmol/L Anion Gap 12 7-15 mmol/L Urea Nitrogen 12.4 8.0-23.0 mg/dL Creatinine 0.61 0.51-0.95 mg/dL Calcium 9.2 8.8-10.2 mg/dL Glucose 143 70-99 mg/dL Alkaline Phosphatase 82 35-104 U/L AST 130 10-35 U/L ALT 179 10-35 U/L Protein Total 6.4 6.4-8.3 g/dL Albumin 4.4 3.5-5.2 g/dL Bilirubin Total 0.3 <=1.2 mg/dL GFR Estimate >90 >60 mL/min/1.73m2 eGFR calculated using 2020 CKD-EPI equation. PERFORMED BY: [facility], [place] [address] [place] [id number],[facility] [id number] . TSH Reviewed date:08/25/2022 11:35:58 AM Interpretation:normal - 1.89 Performing Lab: Notes/Report: TSH 1.89 0.30-4.20 uIU/mL PERFORMED BY: [facility], [place] [address] [place] [id number],[facility] [id number] . Microalbumin (In-House) Reviewed date:08/24/2022 12:00:43 PM Interpretation:Abnormal Performing Lab: Notes/Report: Albumin 10 mg/L < 20 mg/L mg/L Creatine 50 mg/dL 10 - 300 mg/dL mg/dL A:C Ratio 30 - 300 mg/g Abnormal < 30 mg/g mg/g COMPREHENSIVE METABOLIC Reviewed date:09/17/2022 10:48:23 AM Interpretation:AST-349, ALT-339 Performing Lab: Notes/Report: Sodium 140 136-145 mmol/L Potassium 4.4 3.4-5.3 mmol/L Chloride 104 98-107 mmol/L Carbon Dioxide (CO2) 27 22-29 mmol/L Anion Gap 9 7-15 mmol/L Urea Nitrogen 12.6 8.0-23.0 mg/dL Creatinine 0.65 0.51-0.95 mg/dL Calcium 9.3 8.8-10.2 mg/dL Glucose 127 70-99 mg/dL Alkaline Phosphatase 100 35-104 U/L AST 349 0-45 U/L Reference inter vals for this test were updated on 08/31/2022 to more accurately reflect our healthy population. There may be differences in the flagging of prior results with similar values performed with this method. Interpretation of those prior results can be made in the context of the updated reference intervals. ALT 339 0-50 U/L Reference inter vals for this test were updated on 08/31/2022 to more accurately reflect our healthy population. There may be differences in the flagging of prior results with similar values performed with this method. Interpretation of those prior results can be made in the context of the updated reference intervals. Protein Total 6.2 6.4-8.3 g/dL Albumin 4.2 3.5-5.2 g/dL Bilirubin Total 0.4 <=1.2 mg/dL GFR Estimate >90 >60 mL/min/1.73m2 PERFORMED BY: [facility], [place] [address] [place] [id number],[facility] [id number] . Albumin Quantitative Random Urine Reviewed date:08/25/2022 10:42:00 AM Interpretation: Performing Lab: Notes/Report: Creatinine Urine mg/dL 23.8 The r eference ranges have not been established in urine creatinine. The results should be integrated into the clinical context for interpretation. Albumin Urine mg/L <12.0 The refer ence ranges have not been established in urine albumin. The results should be integrated into the clinical context for interpretation. Albumin Urine mg/g Creat Unable to calculate, urine albumin and/or urine creatinine is outside detectable limits. Microalbuminuria is defined as an albumin:creatinine ratio of 17 to 299 for males and 25 to 299 for females. A ratio of albumin:creatinine of 300 or higher is indicative of overt proteinuria. Due to biologic variability, positive results should be confirmed by a second, first-morning random or 24-hour timed urine specimen. If there is discrepancy, a third specimen is recommended. When 2 out of 3 results are in the microalbuminuria range, this is evidence for incipient nephropathy and warrants increased efforts at glucose control, blood pressure control, and institution of therapy with an tvcspijhudj-zvcqnuffjb-w nzyme (LUKASZ) inhibitor (if the patient can tolerate it). PERFORMED BY: [facility], [address] [address] [place] [id number],[facility] [id number] . REASON FOR REFERRAL Reason Needs follow up for AAA, was initially seen on CT scan, but may be able to do US, can you check with radiologist to find out which they would prefer for follow up? Diagnosis 1 Infrarenal abdominal aortic aneurysm (AAA) without rupture (I71.43) Referral Organization [facility] Ju BERNAL Referring Provider First Name Herminia Referring Provider Last Name Hima Referring Provider [facility] ctice Referred Provider Specialty Radiology General Notes Serene Rucker 01/28/2022 01:01:37 PM > Called [facility], they will leave a message for the US Tech, Cari, and call back.Chaim Nou 01/28/2022 03:10:49 PM > Called Cari again, she states an ultrasound AAA is recommended. Called Patient and informed her. Order sent to [facility]. Patient will call them to schedule. FYI to Anastacia.Chaim Nou 02/02/2022 10:10:56 AM > Referral Priority Routine Reason Recall Colonoscopy - last exam was 09/17/2017 - repeat in 5 years. Referral Organization [facility] Referring Provider First Name Herminia Referring Provider Last Name Hima Referring Provider [facility] ctice Referred Organization [facility] Referred Address [address],[place], [place],[address] Referred Provider Specialty Gastroentero logy General Notes Nella, 08/12/2022 10:50:28 AM > Order sent to [facility] and Michael letter mailed out to patient., Nella, 10/06/2022 04:15:09 PM > records received 09/29/2022. Referral Priority Routine Reason RUQ US for elevated LFTs Diagnosis 1 Elevated LFTs (R79.8 9) Referral Organization [facility] Referring Provider First Name Herminia Referring Provider Last Name Hima Referring Provider [facility] ctice Referred Provider Specialty Radiology Clinical Notes Serene Rucker 09/28/2022 01:46:22 PM > Order sent to [facility]. Referral Priority Routine Reason ultrasound is mildly abnormal, but no clear cause is found. Referral to liver specialist is recommended. Referral Organization [facility] Referring Provider First Name Herminia Referring Provider Last Name Walker Referring Provider [facility] ctice Referred Organization [facility] Referred Provider RAFAEL LIM Referred Address [address] [place], [place],[address],[place] Referred Provider Specialty Gastroentero logy Clinical Notes Serene Rucker 10/01/2022 01:33:25 PM > Referral sent to clinic to contact Patient. Referral Priority Routine MEDICATIONS Medication SIG (Take, Route, Frequency, Duration) Notes Start Date End Date Status Vitamin D 25 MCG (1000 UT) orally twice a week Active Aspirin 81 MG 1 tab(s) chewed once a day 11/09/2017 Active Atorvastatin Calcium 80 MG TAKE ONE TABL ET BY MOUTH ONE TIME DAILY AT BEDTIME 90 DAYS Active buPROPion HCl 75 MG TAKE ONE TABLET BY M OUTH TWICE DAILY Active Celecoxib 200 MG 1 capsule with food Orally Once a day Active Iron 325 (65 Fe) MG 1 tablet Orally Once a day for 30 day(s) Active Levothyroxine Sodium 125 MCG TAKE ONE TA BLET BY MOUTH ONE TIME DAILY 90 DAYS Active Lisinopril 20 MG TAKE ONE TABLET BY M OUTH ONE TIME DAILY 90 DAYS Active metFORMIN HCl 500 MG TAKE ONE TABLET BY MOUTH TWICE DAILY Active Ozempic (0.25 or 0.5 MG/DOSE) 2 MG/3ML 0.5 mg Subcutaneous once weekly for 28 days 12/02/2022 Active Alendronate Sodium 70 MG 1 tablet 30 min utes before the first food, beverage or medicine of the day with plain water Orally once a week for 84 days 08/24/2022 Active Pseudoephedrine HCl 30 MG 2 tab(s) orall y once a day Active Amitriptyline HCl 25 MG TAKE THREE TABLE TS BY MOUTH DAILY for 90 days Active HYDROcodone-Acetaminophen 5-325 MG 1 tablet as needed Orally every 6 hrs for 90 days 10/12/2022 Active Xanax 0.5 MG take one tablet once daily as needed PO once daily for 90 days 10/12/2022 Active IMMUNIZATIONS Vaccine Route Administration Date Status Comme nts Covid Vaccine (Moderna) Unknown 06/03/2020 Administered Covid Vaccine (Moderna) Unknown 07/01/2020 Administered Covid Vaccine (Moderna) Unknown 01/21/2021 Administered Covid Vaccine (Pfizer) 12 and older Unknown 10/13/2021 Administered Influenza (Flulaval) 3 years and up WITH preservative IM Intramuscular 01/13/2016 Administered Influenza 3 Years and above WITH Preservative IM Intramuscular 12/14/2014 Administered Influenza 6 months and older WITH Preservative IM Intramuscular 01/25/2019 Administered Influenza Fluzone High Dose Unknown 01/10/2022 Administered Pneumococcal 13 (Prevnar) Unknown 07/17/2020 Administer ed Pneumococcal 23 Adult IM Intramuscular 10/12/2018 Administ ered Tdap (Boostrix 7 years & older ) Unknown 12/31/2012 Administered Zoster Vaccine (Shingrix) Unknown 07/17/2020 Administer ed Zoster Vaccine (Shingrix) Unknown 10/01/2020 Administer ed Zoster vaccine, live Unknown 12/18/2012 Administered SOCIAL HISTORY Tobacco Use: Social History Observation Description Date Details (start date - stop date) Never Smoker NA - NA Sex Assigned At : Social History Observation Description Sex Assigned At Unknown Tobacco Status Question Answer Notes I am: never smoker PROBLEMS Problem Type ICD Code Onset Dates Problem Status W/U Status Risk SNOMED Code Notes Problem Anxiety (F41.9) Active confirmed 120903 02 Problem Venous insufficiency (I87.2) Active confirmed 06064231 Problem Allergic conjunctivitis (H10.10) Active confirmed 709549916 Problem Depression, major, recurrent, 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) Active confirmed 99589826 Problem Acquired hypothyroidism (E03.9) Active confirmed 698481398 Problem Other chronic pain (G89.29) Active confirmed 855375900 Problem Bariatric surgery status (Z98.84) Active confirmed 144031427 Problem Type 2 diabetes mellitus with other diabetic kidney complication (E11.29) Active confirmed 81372973 Problem Pain in right ankle and joints of right foot (M25.571) Active confirmed 646281007 Problem Age-related osteoporosis without current pathological fracture (M81.0) Active confirmed 77909694 Problem Non morbid obesity due to excess calories (E66.09) Active confirmed 989695325 Problem Type 2 diabetes mellitus without complication (E11.9) Active confirmed 85116925 Problem Allergic rhinitis due to other allergen (J30.89) Active confirmed 25388592 Problem Hyperlipidemia, unspecified hyperlipidemia type (E78.5) Active confirmed 90848532 Problem Essential hypertension with goal blood pressure less than 140\/90 (I10) Active confirmed 32092329 Problem Abdominal aortic aneurysm (AAA) without rupture (I71.4) Active confirmed 09472538 Problem Cataract of both eyes, unspecified cataract type (H26.9) Active confirmed 69221375 VITAL SIGNS Oximetry 96 08/24/2022 Blood pressure diastolic 62 mm Hg 08/24/2022 Height 68 in 08/24/2022 Blood pressure systolic 114 mm Hg 08/24/2022 Weight 162 lbs 08/24/2022 BMI 24.63 kg/m2 08/24/2022 PROCEDURES Procedure Date Ordered Date Performed Result Body Sit e Functional Screen Assessment 01/28/2022 01/28/2022 No history of falls Encounters Encounter Location Date Provider Diagnosis [address] [id number] 01/09/2022 Herminia Walker [address] [id number] 03/26/2022 Herminia Rabago Depression, major, recurrent, in complete remission F33.[address] [id number] 04/22/2022 Herminia Rabago Other chronic pain G89.[address] [id number] 04/22/2022 Herminia Hima [address] [id number] 06/22/2022 Herminia Walker [address] [id number] 06/23/2022 Herminia Walker [address] [id number] 07/17/2022 Herminia Walker [address] [id number] 08/13/2022 Herminia Walker [address] [id number] 09/08/2022 Herminia Hima [facility] [address] [facility] [address] [place], [place] [id number] 09/25/2022 Herminia Walker [address] [id number] 09/29/2022 Herminia Walker ENT[address] [id number] 09/30/2022 Herminia Walker [address] [id number] 10/02/2022 Herminia Walker [address] [place] [id number] 12/16/2022 Herminia Rabago [address] [id number] 01/07/2022 Herminia Rabago Anxiety F41.9 and Other chronic pain G89.[address] [id number] 03/26/2022 Herminia Rabago Depression, major, recurrent, in complete remission F33.[address] [id number] 04/22/2022 Herminia Rabago [address] [id number] 05/20/2022 Herminia Rabago Other chronic pain G89.[address] [id number] 06/17/2022 Herminia Rabago Other chronic pain G89.29 and Anxiety F41.[address] [id number] 06/19/2022 Herminia Rabago [address] [id number] 06/19/2022 Herminia Rabago Other chronic pain G89.[address] [id number] 06/23/2022 Herminia Rabago Anxiety F41.[address] [id number] 06/23/2022 Herminia Rabago [address] [id number] 07/15/2022 Herminia Rabago Encounter for screening for osteoporosis Z13.820 and Asymptomatic menopause Z78.[address] [id number] 07/15/2022 Herminia Rabago Anxiety F41.[address] [id number] 07/16/2022 Herminia Rabago [address] [id number] 07/16/2022 Herminia Rabago [address] [id number] 07/16/2022 Herminia Walker [facility] [address] [facility], [place] [id number] 07/17/2022 Herminia Walker [facility] [address] [facility], [place] [id number] 07/17/2022 Herminia Walker [facility] [address] [facility], [place] [id number] 08/26/2022 Herminia Walker [facility] [address] [facility], [place] [id number] 12/01/2022 Herminia Walker [facility] [address] [facility] [place] [id number] 12/16/2022 Herminia Walker [facility] [address] [facility], [place] [id number] 12/16/2022 Herminia Walker [facility] [address] [facility], [place] [id number] 09/16/2022 Herminia Walker Essential hypertensi on with goal blood pressure less than 140\/90 I10 [facility] [address] [facility], [place] [id number] 09/30/2022 Herminia Hima Elevated LFTs R79.89 [facility] [address] [facility], [place] [id number] 01/28/2022 Herminia Rabago Type 2 diabetes mellitus without complication E11.9 ; Essential hypertension with goal blood pressure less than 140\/90 I10 ; Encounter for Medicare annual wellness exam Z00.00 ; Hyperlipidemia, unspecified hyperlipidemia type E78.5 ; Infrarenal abdominal aortic aneurysm (AAA) without rupture I71.43 ; Other chronic pain G89.29 ; Pain in right ankle and joints of right foot M25.571 ; Anxiety F41.9 ; Depression, major, recurrent, in complete remission F33.42 and Osteoporosis screening Z13.820 [facility] [address] [place], [place] [id number] 08/24/2022 Herminia Walker Essential hypertensi on with goal blood pressure less than 140\/90 I10 ; Type 2 diabetes mellitus with other diabetic kidney complication E11.29 ; Hyperlipidemia, unspecified hyperlipidemia type E78.5 ; Infrarenal abdominal aortic aneurysm (AAA) without rupture I71.43 ; Depression, major, recurrent, in complete remission F33.42 ; Anxiety F41.9 ; Acquired hypothyroidism E03.9 ; Other chronic pain G89.29 ; Pain in right ankle and joints of right foot M25.571 ; Proteinuria, unspecified R80.9 and Age-related osteoporosis without current pathological fracture M81.[address] [id number] 08/04/2022 Herminia Rabago [address] [id number] 09/28/2022 Herminia Rabago Elevated LFTs R79.[address] [id number] 04/22/2022 Herminia Rabago Type 2 diabetes mellitus without complication E11.9 ; Essential hypertension with goal blood pressure less than 140\/90 I10 ; Hyperlipidemia, unspecified hyperlipidemia type E78.5 ; Other chronic pain G89.29 ; Pain in right ankle and joints of right foot M25.571 and Anxiety F41.9 ASSESSMENTS Encounter Date Diagnosis Assessment Notes Treatment Notes Treatment Clinical Notes 01/07/2022 Anxiety (ICD-10 - F41.9) 01/28/2022 Type 2 diabetes mellitus without complication (ICD-10 - E11.9) Guidelines: Ha1c less than 7.0. BP less than 140/90. Per guidelines, is taking recommended statin and dose. Nonsmoker. Taking ASA. Foot exam is normal. Eye exam is due - pt will schedule on her own. Recheck in 3 months. A total of 43 minutes was spent on record review, care coordination, face to face time with the patient, and documentation for today's visit 03/26/2022 Depression, major, recurrent, in complete remission (ICD-10 - F33.42) 04/22/2022 Type 2 diabetes mellitus without complication (ICD-10 - E11.9) Diabetes is stable per glucose readings at home, will continue taking medication and follow up in clinic in 3 months. A total of 32 minutes was spent on record review, care coordination, face to face time with the patient, and documentation for today's visit 04/22/2022 Essential hypertension with goal blood pressure less than 140\/90 (ICD-10 - I10) BP readings are stable at home, will continue on medications and recheck in clinic in 3 months. 03/26/2022 Depression, major, recurrent, in complete remission (ICD-10 - F33.42) 04/22/2022 Other chronic pain (ICD-10 - G89.29) 05/20/2022 Other chronic pain (ICD-10 - G89.29) 06/17/2022 Other chronic pain (ICD-10 - G89.29) 06/19/2022 Other chronic pain (ICD-10 - G89.29) 06/23/2022 Anxiety (ICD-10 - F41.9) 07/15/2022 Encounter for screening for osteoporosis (ICD-10 - Z13.820) 07/15/2022 Anxiety (ICD-10 - F41.9) 08/24/2022 Type 2 diabetes mellitus with other diabetic kidney complication (ICD-10 - E11.29) Guidelines: Ha1c less than 7.0. BP less than 140/90. Per guidelines, is taking recommended statin and dose. Nonsmoker. Taking ASA. Eye exam is scheduled soon. Recheck in 3 months. On lisinopril for renal protection. A total of 43 minutes was spent on record review, care coordination, face to face time with the patient, and documentation for today's visit 08/24/2022 Essential hypertension with goal blood pressure less than 140\/90 (ICD-10 - I10) Blood pressure is well controlled, stay on medication and follow up in 6 months. Encourage the following: Low salt diet, regular exercise, home B/P monitoring, weight loss and moderation of alcohol. 09/16/2022 Essential hypertension with goal blood pressure less than 140\/90 (ICD-10 - I10) 09/28/2022 Elevated LFTs (ICD-10 - R79.89) Discussed results and recommendation to have labs including hepatitis testing and US. Referral for US done. Cheri will return to clinic for labs. 09/30/2022 Elevated LFTs (ICD-10 - R79.89) 08/24/2022 Hyperlipidemia, unspecified hyperlipidemia type (ICD-10 - E78.5) Is on a statin. 07/15/2022 Asymptomatic menopause (ICD-10 - Z78.0) 06/17/2022 Anxiety (ICD-10 - F41.9) 04/22/2022 Hyperlipidemia, unspecified hyperlipidemia type (ICD-10 - E78.5) On a statin. 01/28/2022 Essential hypertension with goal blood pressure less than 140\/90 (ICD-10 - I10) Blood pressure is well controlled, stay on medication and follow up in 6 months. Encourage the following: Low salt diet, regular exercise, home B/P monitoring, weight loss and moderation of alcohol. 01/07/2022 Other chronic pain (ICD-10 - G89.29) 01/28/2022 Hyperlipidemia, unspecified hyperlipidemia type (ICD-10 - E78.5) On a statin. 01/28/2022 Encounter for Medicare annual wellness exam (ICD-10 - Z00.00) 04/22/2022 Other chronic pain (ICD-10 - G89.29) Chronic pain is managed with medication. Refill was given for 90 days due to travel. Will have in office visit in 3 months. 08/24/2022 Infrarenal abdominal aortic aneurysm (AAA) without rupture (ICD-10 - I71.43) Stable, recheck US due in 06/202508/24/2022 Depression, major, recurrent, in complete remission (ICD-10 - F33.42) Stable, on medication. 04/22/2022 Pain in right ankle and joints of right foot (ICD-10 - M25.571) 01/28/2022 Infrarenal abdominal aortic aneurysm (AAA) without rupture (ICD-10 - I71.43) Needs follow up imaging performed. 04/22/2022 Anxiety (ICD-10 - F41.9) Anxiety is managed with medication. Refill was given for 90 days due to travel. Will have in office visit in 3 months. 08/24/2022 Anxiety (ICD-10 - F41.9) Has controlled substance contract, urine drug screening up to date, [employer] reviewed - no concerning issues seen, last refill was given for 90 days on 07/15/2022. Will need follow up appt in 3 months. 01/28/2022 Other chronic pain (ICD-10 - G89.29) Has controlled substance contract, urine drug screening up to date, [employer] reviewed - no concerning issues seen, refill was given on 01/09/2022, was refilled today for 90 days due to upcoming travel, next refill due on 05/01/2021. Will need follow up appt in 3 months. 08/24/2022 Acquired hypothyroidism (ICD-10 - E03.9) Will check thryoid labwork and adjust medication accordingly. 01/28/2022 Pain in right ankle and joints of right foot (ICD-10 - M25.571) 01/28/2022 Anxiety (ICD-10 - F41.9) Has controlled substance contract, urine drug screening up to date, [employer] reviewed - no concerning issues seen, refill was given on 01/09/2022, was refilled today for 90 days due to upcoming travel, next refill due on 05/01/2021. Will need follow up appt in 3 months. 08/24/2022 Other chronic pain (ICD-10 - G89.29) Has controlled substance contract, urine drug screening up to date, [employer] reviewed - no concerning issues seen, last refill was given for 90 days on 07/17/2022. Will need follow up appt in 3 months. 08/24/2022 Pain in right ankle and joints of right foot (ICD-10 - M25.571) 01/28/2022 Depression, major, recurrent, in complete remission (ICD-10 - F33.42) Stable, in remission, stay on medication. 01/28/2022 Osteoporosis screening (ICD-10 - Z13.820) Patient was recommended to have DEXA scanning performed, was given handouts with information for scheduling and regarding calcium/vitamin D supplementation. 08/24/2022 Proteinuria, unspecified (ICD-10 - R80.9) 08/24/2022 Age-related osteoporosis without current pathological fracture (ICD-10 - M81.0) Reviewed and discussed DEXA scan results. Recommended to continue calcium/vitamin D supplements and start fosamax with repeat DEXA scan in 1-2 years. 01/28/2022 Other Current provid ers and suppliers list as provided by the patient is scanned into the patient document section of the EMR. 08/24/2022 Other 09/28/2022 Other This appointmen t is being conducted via Televideo. This encounter was face to face between provider and patient using interactive audio and video telecommunication. Health care needs are being provided without a physical exam. [employer] tool storage attendant was used for today's visit. PLAN OF TREATMENT Next Appt Details Provider Name:Herminia Mathur nelson, 01/19/2023 09:00:00 AM, [address] [facility], [place], [place], [phone], Insurance Providers Payer Name Payer Address Payer Phone Subscriber Number Group Number Insured Name Patient Relationship to Insured Coverage Start Date Coverage End Date [facility] [address] [address] [place] [phone] [id number] Cali Warren Spouse - patient is the spouse of the insured 0 MEDICAL (GENERAL) HISTORY Medical History History ICD Code Controlled substance contrac t on file in Health Directives folder signed 07/24/13 with Anastacia Rabago PA-C. Diagnosis of chronic pain and anxiety. DM, type 2 Hypertension Hyperlipidemia Hypothyroidism Depression/Anxiety Infrarenal aortic aneurysm, 3.1 cm, small, found on CT scan in 06/2017, repeat in 06/2020 Chronic right ankle pain - post surgical /fx Seasonal allergies Venous Insufficiency Zostavax vaccine on 12/08/12 Surgical History Surgery Date(Month/Year) No personal or family history of bleedin g problems bariatric surgery dr anai green [place] appendectomy 06-28-10 gallbladder and gallstones left breast bx over 10 years ago Right ankle - fx with following surgical repair 1991 No personal or family history of anesthe luis daniel problems Hospitalization History Reason Date(Month/Year)
[2023-01-05 16:08] LABS: Basophils Absolute Auto 0.02 K/uL (0.00-0.30); Basophils Percent Auto 0.2 % (0.0-3.0); Eosinophils Absolute Auto 0.06 K/uL (0.00-0.50); Eosinophils Percent Auto 0.7 % (0.0-7.0); Hematocrit 44.2 % (33.0-51.0); Hemoglobin* 14.6 gm/dL (12.0-16.0); Immature Granulocytes Abs Auto 0.02 K/uL (0.00-0.30); Immature Granulocytes Pct Auto 0.2 %; Lymphocytes Percent Auto 10.8 % (20-44); Mean Corpuscular HGB Conc 33 gm/dL (32-36); Mean Corpuscular Hemoglobin 32 pg (26-34); Mean Corpuscular Volume 97 fL (80-100); Monocytes Percent Auto 4.7 % (0.0-11.0); Neutrophils Percent Auto 83.4 % (42.0-72.0); Platelet Count* 279 K/uL (140-440); RDW Coefficient of Variation % 12.9 % (11.5-15.5); Red Blood Count 4.58 m/uL (4.00-5.20); White Blood Count* 8.27 K/uL (4.50-11.00)
[2023-01-05] MEDS: KETOROLAC 30 MG/ML inj IM (16:12)
[2023-01-05 16:21] LABS: Slide Review Reflex No
[2023-01-05 16:28] LABS: Chloride* 104 mmol/L (96-114)
[2023-01-05 16:29] LABS: Potassium* 3.6 mmol/L (3.6-5.1); Sodium* 135 mmol/L (135-149)
[2023-01-05 16:31] LABS: Creatinine* 0.5 mg/dL (0.5-1.5); Est. Creatinine Clearance* 58.64; Estimated Glomerular Filt Rate 103 ml/min
[2023-01-05 16:32] LABS: Anion Gap 13 mEq/L (7-15); Blood Urea Nitrogen* 16 mg/dL (7-30); Carbon Dioxide* 18 mmol/L (20-32); Glucose* 126 mg/dL (60-115)
[2023-01-05 16:33] LABS: Calcium* 8.7 mg/dL (8.4-10.6)
[2023-01-05 16:35] LABS: C Reactive Protein* 1.1 mg/dL (0.5-1.0)
[2023-01-05 16:41] LABS: PCR FLU A Negative PCR FLU A (Negative); PCR FLU B Negative PCR FLU B (Negative); PCR RSV Negative PCR RSV (Negative)
[2023-01-05] MEDS: dilTIAZem 5 MG/ML inj 10 MG IVP (16:51)
[2023-01-05 16:53] LABS: Erythrocyte SedimentationRate* 7 mm/hr (2-20)
[2023-01-05] MEDS: 0.9 % SODIUM CHLORIDE 1000 ml 1,000 ML IV ×2 (16:59→17:53)
[2023-01-05 17:04] LABS: SARS PCR* Negative SARS-CoV-2 (Negative)
[2023-01-05] MEDS: ETOMIDATE 2 MG/ML inj 15 MG IVP (18:15)
--- NOTE | 2023-01-05 18:51 | ED.NURSE ---
Visual acuity testng done: 20/30 bilateral, right and left eye
== END 2023-01-05 19:13 | disposition home or self-care (01) ==
PROVIDERS: Emergency Provider Emergency Medicine
DX: I48.20 Chronic atrial fibrillation, unspecified (principal); I95.9 Hypotension, unspecified
CPT/HCPCS: 36415; 80048; 84484; 85025; 85651; 86140; 87631; 92960; 93005; 94761; 96372; 99156; 99284; 99285; J1885; J7030

== ENCOUNTER 2023-08-04 09:47 | Outpatient (CLI) | payer BC, SELFPAY ==
--- NOTE | 2023-08-04 09:45 | MM_ITS ---
Patient: GABRIEL CASTANO Facility:?[facility] Patient ID:?[id number] Site Patient ID:?[id number] Site :?[id number] Study:?XRay-Breast Bilateral 3D W/CAD-08/04/2023 10:43:46 AM Ordering Physician:?Samra Rabago Final Report: BILATERAL SCREENING MAMMOGRAM WITH COMPUTER-AIDED DETECTION AND TOMOSYNTHESIS TECHNIQUE: CC and MLO views were obtained. These mammographic images have been obtained using full-field digital technique. These mammographic images were interpreted with the benefit of computer-aided detection. Breast Tomosynthesis was used in this interpretation. COMPARISON FILM: 07/15/22, 04/04/21, 03/28/20. FINDINGS: The breasts are heterogeneously dense, which may obscure small masses. IMPRESSION: There is no radiographic evidence for malignancy. ASSESSMENT: BI-RADS Category 2: Benign RECOMMENDATION: Routine screening mammogram in 1 year. A lay language report of this examination will be provided to the patient. Nikko Montero M.D. Diagnostic Radiologist [email or web address] DSM/sp R& Transcribed: 7:33 p.m. SP/Dictated by: Nikko Montero MD @ 08/04/2023 11:07:00 AM Signed by:?Nikko Montero MD @08/04/2023 7:46:01 PM (Electronic Signature)
--- OUTSIDE RECORDS SUMMARY | 2023-08-04 09:50 | XMS_ITS | Patient Health Record ---
Author Name Unknown Organization [facility] S Address [address] [phone] Care Team Providers Care Convenience Store Manager Name Role Phone Herminia Rabago PA-C Primary Care Provider Allergies No Known Allergies Results Component Value Reference Range Notes GLYCOSYLATED HGB A1C Reviewed date:01/19/2023 11:32:05 AM Interpretation:6.3 Performing Lab: Notes/Report: GLYCOSYLATED HGB A1C Reviewed date:08/24/2022 12:00:34 PM Interpretation:6.7 Performing Lab: Notes/Report: TSH Reviewed date:08/25/2022 11:35:58 AM Interpretation:normal - 1.89 Performing Lab: Notes/Report: TSH 1.89 0.30-4.20 uIU/mL PERFORMED BY: [facility], [place] [id number] [place] [id number],[facility] [id number] . LIPID CASCADE Reviewed date:08/25/2022 11:36:10 AM Interpretation: [...] or equal to 220 mg/dL PERFORMED BY: [facility], [place] [id number] [place] [id number],[facility] [id number] . Microalbumin (In-House) Reviewed date:08/24/2022 12:00:43 PM Interpretation:Abnormal Performing Lab: Notes/Report: Colonoscopy Reviewed date:10/05/2022 02:03:00 PM Interpretation:repeat in 5 years Performing Lab: Notes/Report: repeat in 5 years COMPREHENSIVE METABOLIC Reviewed date:01/20/2023 10:06:30 AM Interpretation:AST-106, ALT-79 Performing Lab: Notes/Report: Sodium 141 135-145 mmol/L Reference int ervals for this test were updated on 12/15/2022 to more accurately reflect our healthy population. There may be differences in the flagging of prior results with similar values performed with this method. Interpretation of those prior results can be made in the context of the updated reference intervals. Potassium 3.9 3.4-5.3 mmol/L Carbon Dioxide (CO2) 21 22-29 mmol/L Anion Gap 11 7-15 mmol/L Urea Nitrogen 10.9 8.0-23.0 mg/dL Creatinine 0.52 0.51-0.95 mg/dL GFR Estimate >90 >60 mL/min/1.73m2 Calcium 8.1 8.8-10.2 mg/dL Chloride 109 98-107 mmol/L Glucose 90 70-99 mg/dL Alkaline Phosphatase 67 35-104 U/L AST 106 0-45 U/L Reference inter vals for this test were updated on 08/31/2022 to more accurately reflect our healthy population. There may be differences in the flagging of prior results with similar values performed with this method. Interpretation of those prior results can be made in the context of the updated reference intervals. ALT 79 0-50 U/L Reference inter vals for this test were updated on 08/31/2022 to more accurately reflect our healthy population. There may be differences in the flagging of prior results with similar values performed with this method. Interpretation of those prior results can be made in the context of the updated reference intervals. Protein Total 5.6 6.4-8.3 g/dL Albumin 3.5 3.5-5.2 g/dL Bilirubin Total 0.3 <=1.2 mg/dL PERFORMED BY: [facility], [place] [address] [place] [id number],[facility] [id number] . COMPREHENSIVE METABOLIC Reviewed date:08/25/2022 11:42:10 AM Interpretation:AST-130, [...] calculated using 2020 CKD-EPI equation. PERFORMED BY: [facility], [place] [address] [place] [id number],[facility] [id number] . Albumin Quantitative Random Urine Reviewed date:08/25/2022 [...] into the clinical context for interpretation. Albumin Quantitative Random Urine Reviewed date:07/12/2023 10:36:30 AM Interpretation:normal Performing Lab: Notes/Report: Creatinine Urine mg/dL 7.4 The r eference ranges have not been established in urine creatinine. The results should be integrated into the clinical context for interpretation. Albumin Urine mg/L <12.0 The refer ence ranges have not been established in urine albumin. The results should be integrated into the clinical context for interpretation. GLYCOSYLATED HGB A1C Reviewed date:07/05/2023 10:10:07 AM Interpretation:5.5 Performing Lab: Notes/Report: COMPREHENSIVE METABOLIC Reviewed date:10/02/2022 04:16:18 PM Interpretation:AST-81, [...] GFR Estimate >90 >60 mL/min/1.73m2 PERFORMED BY: [facility], [place] [id number] [place] [id number],[facility] [id number] . COMPREHENSIVE METABOLIC Reviewed date:07/06/2023 03:00:35 PM Interpretation: Performing Lab: Notes/Report: Sodium 143 135-145 mmol/L Reference int ervals for this test were updated on 12/15/2022 to more accurately reflect our healthy population. There may be differences in the flagging of prior results with similar values performed with this method. Interpretation of those prior results can be made in the context of the updated reference intervals. Potassium 3.9 3.4-5.3 mmol/L Carbon Dioxide (CO2) 24 22-29 mmol/L Anion Gap 12 7-15 mmol/L Urea Nitrogen 10.1 8.0-23.0 mg/dL Creatinine 0.68 0.51-0.95 mg/dL GFR Estimate >90 >60 mL/min/1.73m2 Calcium 9.0 8.8-10.2 mg/dL Chloride 107 98-107 mmol/L Glucose 122 70-99 mg/dL Alkaline Phosphatase 77 40-150 U/L Referen ce intervals for this test were updated on 02/02/2023 to more accurately reflect our healthy population. There may be differences in the flagging of prior results with similar values performed with this method. Interpretation of those prior results can be made in the context of the updated reference intervals. AST 61 0-45 U/L Reference inter vals for this test were updated on 08/31/2022 to more accurately reflect our healthy population. There may be differences in the flagging of prior results with similar values performed with this method. Interpretation of those prior results can be made in the context of the updated reference intervals. ALT 88 0-50 U/L Reference inter vals for this test were updated on 08/31/2022 to more accurately reflect our healthy population. There may be differences in the flagging of prior results with similar values performed with this method. Interpretation of those prior results can be made in the context of the updated reference intervals. Protein Total 6.2 6.4-8.3 g/dL Albumin 3.9 3.5-5.2 g/dL Bilirubin Total 0.4 <=1.2 mg/dL [facility] S[facility] Reviewed date:07/06/2023 08:01:08 AM Interpretation: Performing Lab: Notes/Report: LIPID CASCADE Reviewed date:07/06/2023 03:00:16 PM Interpretation: Performing Lab: Notes/Report: Cholesterol 114 <200 mg/dL Triglycerides 64 <150 mg/dL Direct Measure HDL 73 >=50 mg/dL LDL Cholesterol Calculated 28 <=100 mg/dL Non HDL Cholesterol 41 <130 mg/dL TSH Reviewed date:07/06/2023 03:00:25 PM Interpretation:normal - 1.29 Performing Lab: Notes/Report: TSH 1.29 0.30-4.20 uIU/mL Ultrasound : Right Upper Jaime drant Reviewed date:09/30/2022 11:30:54 AM Interpretation: Performing Lab: Notes/Report: See Below For Report COMPREHENSIVE METABOLIC Reviewed date:09/17/2022 10:48:23 AM Interpretation:AST-349, [...] GFR Estimate >90 >60 mL/min/1.73m2 PERFORMED BY: [facility], [place] [address] [place] [address] [place] [id number],[facility] [id number] . PREMI[facility] URINE DRUG SCREEN Reviewed date:08/24/2022 12:04:41 PM Interpretation: Performing Lab: Notes/Report: CBC with Platelets And Diffe rential Reviewed [...] <=0.4 10e3/uL Absolute NRBCs 0.0 PERFORMED BY: [facility], [address] [address] [place] [id number],[facility] [id number] . Hepatitis B Surface Antigen Reviewed date:10/02/2022 04:16:35 PM Interpretation:negative Performing Lab: Notes/Report: Hepatitis B Surface Antigen Nonreactive Nonreactive PERFORMED BY: [facility], [facility] [address] [place] [address] Hepatitis C Antibody Reviewed date:10/02/2022 04:16:50 PM Interpretation:negative Performing Lab: Notes/Report: Hepatitis C Antibody Nonreactive Nonreactive Assay performance characteristics have not been established for newborns, infants, and children. PERFORMED BY: [facility], [facility] [address] [place] [address] Urine Drug Screen Reviewed date:07/16/2023 03:39:39 PM Interpretation:positive - cannabis Performing Lab: Notes/Report: Diabetic Eye Exam Reviewed date:09/18/2022 09:55:17 AM Interpretation:Abnormal Performing Lab: Notes/Report: Abnormal Reason For Referral Reason Recall Colonoscopy - last exam was 09/17/2017 - repeat in 5 years. Referral Organization [facility] Referring Provider First Name Herminia Referring Provider Last Name Hima Referring Provider [facility] ctice Referred Organization [facility] Referred Address [address],[place], [place],[address] Referred Provider Specialty Gastroentero logy General Notes Nella, 08/12/2022 10:50:28 AM > Order sent to [facility] and Brady letter mailed out to patient., Nella, 10/06/2022 04:15:09 PM > records received 09/29/2022. Referral Priority Routine Reason RUQ US for elevated LFTs Diagnosis 1 Elevated LFTs (R79.8 9) Referral Organization [facility] Referring Provider First Name Herminia Referring Provider Last Name Hima Referring Provider [facility] ctice Referred Provider Specialty Radiology Clinical Notes Serene Rucker 09/28/2022 01:46:22 PM > Order sent to [facility]. Referral Priority Routine Reason ultrasound is mildly abnormal, but no clear cause is found. Referral to liver specialist is recommended. Referral Organization [facility] Referring Provider First Name Herminia Referring Provider Last Name Hima Referring Provider [facility] ctice Referred Organization [facility] Referred Provider RAFAEL LIM Referred Address [address] [place], [place],[address],[place] Referred Provider Specialty Gastroentero logy Clinical Notes Serene Rucker 10/01/2022 01:33:25 PM > Referral sent to clinic to contact Patient. Referral Priority Routine Reason Referral to see a Ca rdiologist; Atrial Fibrillation. Please call Vivienne to schedule an appointment. Thank You. Diagnosis 1 Paroxysmal atrial fi brillation (I48.0) Referral Organization [facility] Referring Provider First Name Herminia Referring Provider Last Name Hima Referring Provider Speciality [facility] Referred Organization [facility] Referred Address [address],[place], [place],[address],[place] Referred Provider Specialty CARDIOLOGY General Notes Referral to see a Ca rdiologist; Atrial Fibrillation. Please call Vivienne to schedule an appointment. Thank You. Clinical Notes Gabriel Charlton 07/07/19 01:27:39 PM > RECORDS & ORDER FAXED TO : [facility]. , Gabriel Charlton 07/07/2023 01:27:40 PM > [phone], Gabriel Charlton Ar 07/07/2023 01:27:40 PM > Called Vivienne. Informed Vivienne to call and schedule an appointment if don't hear back from them; provided phone number and the name of facility. Referral Priority Routine Medications Medication SIG (Take, Route, Frequency, Duration) Notes Start Date End Date Status Pseudoephedrine HCl 30 MG 2 tab(s) orall y once a day Active Xarelto 20 MG 1 tablet with food Orally Once a day 01/13/2023 Active Iron 325 (65 Fe) MG 1 tablet Orally Once a day for 30 day(s) Active Xanax 0.5 MG take one tablet once daily as needed PO once daily 06/30/2023 Active Aspirin 81 MG 1 tab(s) chewed once a day 11/09/2017 Active Vitamin D 25 MCG (1000 UT) orally twice a week Active Lisinopril 20 MG TAKE ONE TABLET BY M OUTH ONE TIME DAILY 90 DAYS Active Amitriptyline HCl 25 MG TAKE THREE TABLE TS BY MOUTH DAILY for 90 days Active Ozempic (0.25 or 0.5 MG/DOSE) 2 MG/3ML 0.5 mg Subcutaneous once weekly 12/02/2022 Active Alendronate Sodium 70 MG 1 tablet 30 min utes before the first food, beverage or medicine of the day with plain water Orally once a week for 84 days 08/24/2022 Active metFORMIN HCl 500 MG TAKE ONE TABLET BY MOUTH TWICE DAILY Active buPROPion HCl 75 MG TAKE ONE TABLET BY M OUTH TWICE DAILY Active Atorvastatin Calcium 80 MG TAKE ONE TABL ET BY MOUTH ONE TIME DAILY AT BEDTIME 90 DAYS Active Levothyroxine Sodium 125 MCG TAKE ONE TA BLET BY MOUTH ONE TIME DAILY 90 DAYS Active HYDROcodone-Acetaminophen 5-325 MG 1 tablet as needed Orally every 6 hrs 07/04/2023 Active Immunizations Vaccine Route Administration Date Status Comme nts Adult RSV Vaccine Unknown 11/30/2022 Administered Covid Vaccine (Moderna) Unknown 06/03/2020 Administered Covid Vaccine (Moderna) Unknown 07/01/2020 Administered Covid Vaccine (Moderna) Unknown 01/21/2021 Administered Covid Vaccine (Pfizer) 12 and older Unknown 10/13/2021 Administered Covid-19 (Spikevax-MOD 23-24) Unknown 12/30/2022 Administered Influenza (Flulaval) 3 years and up WITH preservative IM Intramuscular 01/13/2016 Administered Influenza 3 Years and above WITH Preservative IM Intramuscular 12/14/2014 Administered Influenza 6 months and older WITH Preservative IM Intramuscular 01/25/2019 Administered Influenza FLUAD 65 and older (Quadrivalent) Unknown 12/30/2022 Administered Influenza Fluzone High Dose Unknown 01/10/2022 Administered Pneumococcal 13 (Prevnar) Unknown 07/17/2020 Administer ed Pneumococcal 23 Adult IM Intramuscular 10/12/2018 Administ ered Tdap (Boostrix 7 years & older ) Unknown 12/31/2012 Administered Zoster Vaccine (Shingrix) Unknown 07/17/2020 Administer ed Zoster Vaccine (Shingrix) Unknown 10/01/2020 Administer ed Zoster vaccine, live Unknown 12/18/2012 Administered Social History Tobacco Use: Social History Observation Description Date Details (start date - stop date) Never Smoker NA - NA Tobacco Status Question Answer Notes I am: never smoker Problems Problem Type SNOMED Code ICD Code Onset Dates Problem Status W/U Status Risk Notes Problem 608018050 Paroxysmal atria l fibrillation (I48.0) Active confirmed Problem 13208241 Anxiety (F41.9) Active confirmed Problem 82368515 Venous insufficiency (I87.2) Active confirmed Problem 448940784 Allergic conjunctivitis (H10.10) Active confirmed Problem 79412816 Depression, tucker r, recurrent, 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) Active confirmed Problem 174661634 Acquired hypothyroidism (E03.9) Active confirmed Problem 057237829 Other chronic pa in (G89.29) Active confirmed Problem 90737835 Proteinuria, unspecified (R80.9) Active confirmed Problem 364647243 Bariatric surger y status (Z98.84) Active confirmed Problem 884539620 Other thrombophi tiago (D68.69) Active confirmed Problem 27890684 Type 2 diabetes mellitus with other diabetic kidney complication (E11.29) Active confirmed Problem 795210589 Pain in right an kle and joints of right foot (M25.571) Active confirmed Problem 02763599 Age-related osteoporosis without current pathological fracture (M81.0) Active confirmed Problem 281136695 Non morbid obesi ty due to excess calories (E66.09) Active confirmed Problem 80910148 Type 2 diabetes mellitus without complication (E11.9) Active confirmed Problem 67070098 Allergic rhiniti s due to other allergen (J30.89) Active confirmed Problem 97382461 Hyperlipidemia, unspecified hyperlipidemia type (E78.5) Active confirmed Problem 71300100 Essential hypertension with goal blood pressure less than 140\/90 (I10) Active confirmed Problem 23360369 Abdominal aortic aneurysm (AAA) without rupture (I71.4) Active confirmed Problem 01467911 Cataract of both eyes, unspecified cataract type (H26.9) Active confirmed Problem 471413503 Infrarenal abdominal aortic aneurysm (AAA) without rupture (I71.43) Active confirmed Vital Signs Oximetry 100 07/05/2023 Blood pressure diastolic 70 mm Hg 07/05/2023 Height 68 in 07/05/2023 Blood pressure systolic 132 mm Hg 07/05/2023 Weight 145.8 lbs 07/05/2023 BMI 22.17 kg/m2 07/05/2023 Encounters Encounter Location Date Provider Diagnosis [place] [id number] [place], [place] [id number] 08/13/2022 Herminia Rabago [address] [id number] 09/08/[address] [facility] [address] [facility] [address] [place], [place] [id number] 09/25/2022 Herminia Rabago [address] [id number] 09/29/2022 Herminia Rabago [address] [id number] 09/30/2022 Herminia Walker [facility] [address] [place], [place] [id number] 10/02/2022 Herminia Walker [facility] [address] [place], [place] [id number] 12/16/2022 Herminia Walker [facility] [address] [place] [id number] 04/06/2023 Herminia Rbaago Other chronic pain G89.29 [facility] [address] [place], [place] [id number] 04/07/2023 Herminia Walker [facility] [address] [place], [place] [id number] 07/04/2023 Herminia Rabago Other chronic pain G89.29 [facility] [address] [place], [place] [id number] 07/05/2023 Herminia Walker [facility] [address] [place], [place] [id number] 07/14/2023 Herminia Walker [facility] [address] [place], [place] [id number] 07/16/2023 Herminia Walker [facility] [address] [place], [place] [id number] 08/26/2022 Herminia Walker [facility] [address] [place], [place] [id number] 12/01/2022 Herminia Walker [facility] [address] [facility] [address] [place] [id number] 12/16/2022 Herminia Walker [facility] [address] [facility] [address] [place] [id number] 12/16/2022 Herminia Walker [facility] [address] [place] [id number] 01/06/2023 Herminia Walker [facility] [address] [place], [place] [id number] 01/11/2023 Herminia Rabago Age-related osteoporosis without current pathological fracture M81.0 [facility] [address] [place], [place] [id number] 03/29/2023 Herminia Rabago [facility] [address] [facility] [address] [place] [id number] 03/31/2023 Herminia Rabago Type 2 diabetes mellitus with other diabetic kidney complication E11.29 [facility] [address] [facility], [place] [id number] 04/05/2023 Herminia Rabago Age-related osteoporosis without current pathological fracture M81.0 ; Depression, major, recurrent, in complete remission F33.42 ; Anxiety F41.9 and Other chronic pain G89.29 [facility] [address] [facility], [place] [id number] 04/07/2023 Herminia Rabago [facility] [address] [facility], [place] [id number] 04/07/2023 Herminia Rabago [facility] [address] [facility], [place] [id number] 04/29/2023 Herminia Rabago [facility] [address] [place], [place] [id number] 05/06/2023 Herminia Rabago Other chronic pain G89.29 [facility] [address] [facility], [place] [id number] 06/02/2023 Herminia Rabago [facility] [address] [facility], [place] [id number] 06/02/2023 Herminia Rabago Other chronic pain G89.29 [facility] [address] [facility], [place] [id number] 06/17/2023 Herminia Rabago Type 2 diabetes mellitus with other diabetic kidney complication E11.29 [facility] [address] [facility], [place] [id number] 06/30/2023 Herminia Rabago Hyperlipidemia, unspecified hyperlipidemia type E78.5 ; Essential hypertension with goal blood pressure less than 140\/90 I10 ; Type 2 diabetes mellitus with other diabetic kidney complication E11.29 ; Acquired hypothyroidism E03.9 and Anxiety F41.9 [facility] [address] [place], [place] [id number] 07/09/2023 Herminia Rabago [facility] [address] [facility], [place] [id number] 07/09/2023 Herminia Rabago [facility] [address] [facility], [place] [id number] 07/14/2023 Herminia Rabago [facility] [address] [place], [place] [id number] 09/28/2022 Herminia Rabago Elevated LFTs R79.[address] [id number] 07/05/2023 Herminia Rabago Infrarenal abdominal aortic aneurysm (AAA) without rupture I71.43 ; Paroxysmal atrial fibrillation I48.0 ; Other thrombophilia D68.69 ; Type 2 diabetes mellitus with other diabetic kidney complication E11.29 ; Depression, major, recurrent, in complete remission F33.42 ; Proteinuria, unspecified R80.9 ; Essential hypertension with goal blood pressure less than 140\/90 I10 ; Hyperlipidemia, unspecified hyperlipidemia type E78.5 ; Other chronic pain G89.29 ; Pain in right ankle and joints of right foot M25.571 ; Anxiety F41.9 ; Acquired hypothyroidism E03.9 and Breast cancer screening by mammogram Z12.[address] [id number] 08/24/2022 Herminia Rabago Essential hypertensi on with goal blood pressure [...] Age-related osteoporosis without current pathological fracture M81.[address] [id number] 01/19/2023 Herminia Rabago Proteinuria, unspecified R80.9 ; Essential hypertension with goal blood pressure less than 140\/90 I10 ; Type 2 diabetes mellitus with other diabetic kidney complication E11.29 ; Hyperlipidemia, unspecified hyperlipidemia type E78.5 ; Other chronic pain G89.29 ; Pain in right ankle and joints of right foot M25.571 and Anxiety F41.[address] [id number] 09/16/2022 Herminia Rabago Essential hypertensi on with goal blood pressure less than 140\/[address] [id number] 09/30/2022 Herminia Rabago Elevated LFTs R79.89 [facility] [address] [place], [place] [id number] 07/15/2023 Herminia Rabago Other chronic pain G89.29 and Pain in right ankle and joints of right foot M25.571 Assessments Encounter Date Diagnosis (ICD Code) Assessment Notes Treatment Notes Treatment Clinical Notes 08/24/2022 Type 2 diabetes mellitus with other [...] the patient, and documentation for today's visit 09/16/2022 Essential hypertension with goal blood pressure less than 140\/90 (ICD-10 - I10) 09/28/2022 Elevated LFTs (ICD-10 - R79.89) Discussed results and recommendation to have labs including hepatitis testing and US. Referral for US done. Cheri will return to clinic for labs. 09/30/2022 Elevated LFTs (ICD-10 - R79.89) 01/11/2023 Age-related osteoporosis without current pathological fracture (ICD-10 - M81.0) 08/24/2022 Essential hypertension with goal blood pressure less than 140\/90 (ICD-10 - I10) Blood pressure is well controlled, stay on medication and follow up in 6 months. Encourage the following: Low salt diet, regular exercise, home B/P monitoring, weight loss and moderation of alcohol. 01/19/2023 Proteinuria, unspecified (ICD-10 - R80.9) 03/31/2023 Type 2 diabetes mellitus with other diabetic kidney complication (ICD-10 - E11.29) 04/05/2023 Age-related osteoporosis without current pathological fracture (ICD-10 - M81.0) 04/06/2023 Other chronic pain (ICD-10 - G89.29) 05/06/2023 Other chronic pain (ICD-10 - G89.29) 06/02/2023 Other chronic pain (ICD-10 - G89.29) 06/17/2023 Type 2 diabetes mellitus with other diabetic kidney complication (ICD-10 - E11.29) 06/30/2023 Hyperlipidemia, unspecified hyperlipidemia type (ICD-10 - E78.5) 07/04/2023 Other chronic pain (ICD-10 - G89.29) 07/05/2023 Infrarenal abdominal aortic aneurysm (AAA) without rupture (ICD-10 - I71.43) Stable, recheck imaging in 2025. 07/15/2023 Other chronic pain (ICD-10 - G89.29) 07/15/2023 Pain in right ankle and joints of right foot (ICD-10 - M25.571) 07/05/2023 Paroxysmal atrial fibrillation (ICD-10 - I48.0) Stable, rate controlled, on Xarelto, referral to see cardiology. 06/30/2023 Essential hypertension with goal blood pressure less than 140\/90 (ICD-10 - I10) 01/19/2023 Essential hypertension with goal blood pressure less than 140\/90 (ICD-10 - I10) Blood pressure is well controlled, stay on medication and follow up in 6 months. Encourage the following: Low salt diet, regular exercise, home B/P monitoring, weight loss and moderation of alcohol. 04/05/2023 Depression, major, recurrent, in complete remission (ICD-10 - F33.42) 08/24/2022 Hyperlipidemia, unspecified hyperlipidemia type (ICD-10 - E78.5) Is on a statin. 01/19/2023 Type 2 diabetes mellitus with other diabetic kidney complication (ICD-10 - E11.29) Guidelines: Ha1c less than 7.0. BP less than 140/90. Per guidelines, is taking recommended statin and dose. Nonsmoker. Taking ASA. Eye exam is up to date. Recheck in 3 months. 08/24/2022 Infrarenal abdominal aortic aneurysm (AAA) without rupture (ICD-10 - I71.43) Stable, recheck US due in 06/202504/05/2023 Anxiety (ICD-10 - F41.9) 01/19/2023 Hyperlipidemia, unspecified hyperlipidemia type (ICD-10 - E78.5) Is on a statin. 06/30/2023 Type 2 diabetes mellitus with other diabetic kidney complication (ICD-10 - E11.29) 07/05/2023 Other thrombophilia (ICD-10 - D68.69) Stable, on Xarelto, referral to see cardiology. 07/05/2023 Type 2 diabetes mellitus with other diabetic kidney complication (ICD-10 - E11.29) Guidelines: Ha1c less than 7.0. BP less than 140/90. Per guidelines, is taking recommended statin and dose. Nonsmoker. Taking ASA. Eye exam is up to date - due soon, pt will schedule. Recheck in 3 months. >40 minutes was spent on record review, care coordination, face to face time with the patient, and documentation for today's visit 07/05/2023 Depression, major, recurrent, in complete remission (ICD-10 - F33.42) Stable, on medication. 06/30/2023 Acquired hypothyroidism (ICD-10 - E03.9) 04/05/2023 Other chronic pain (ICD-10 - G89.29) 01/19/2023 Other chronic pain (ICD-10 - G89.29) Has controlled substance contract, urine drug screening up to date, [employer] reviewed - no concerning issues seen, refill was given on 01/11/2023 for #180 with next refill due on or after 04/05/2023. Will need follow up appt in 3 months. 08/24/2022 Depression, major, recurrent, in complete remission (ICD-10 - F33.42) Stable, on medication. 08/24/2022 Anxiety (ICD-10 - F41.9) Has controlled substance contract, urine drug screening up to date, [employer] reviewed - no concerning issues seen, last refill was given for 90 days on 07/15/2022. Will need follow up appt in 3 months. 01/19/2023 Pain in right ankle and joints of right foot (ICD-10 - M25.571) 06/30/2023 Anxiety (ICD-10 - F41.9) 07/05/2023 Proteinuria, unspecified (ICD-10 - R80.9) Diabetes with proteinuria, stable, on LUKASZ inhibitor for renal protection, will monitor glycemic and hypertension. 07/05/2023 Essential hypertension with goal blood pressure less than 140\/90 (ICD-10 - I10) Blood pressure is well controlled, stay on medication and follow up in 6 months. Encourage the following: Low salt diet, regular exercise, home B/P monitoring, weight loss and moderation of alcohol. 01/19/2023 Anxiety (ICD-10 - F41.9) Has controlled substance contract, urine drug screening up to date, [employer] reviewed - no concerning issues seen, refill was given on 01/11/2023 for #90 with next refill due on or after 04/05/2023. Will need follow up appt in 3 months. 08/24/2022 Acquired hypothyroidism (ICD-10 - E03.9) Will check thryoid labwork and adjust medication accordingly. 08/24/2022 Other chronic pain (ICD-10 - G89.29) Has controlled substance contract, urine drug screening up to date, [employer] reviewed - no concerning issues seen, last refill was given for 90 days on 07/17/2022. Will need follow up appt in 3 months. 07/05/2023 Hyperlipidemia, unspecified hyperlipidemia type (ICD-10 - E78.5) Is on a statin. 07/05/2023 Other chronic pain (ICD-10 - G89.29) Has controlled substance contract, urine drug screening done today, was positive for amphetamines - will send for confirmatory testing, will discuss with Cheri when results return as urine was not tested while she was in clinic. [employer] reviewed - no concerning issues seen, refill was given on 07/04/2023 #180 with next refill due on or after 09/27/2023. Will need follow up appt in 3 months. 08/24/2022 Pain in right ankle and joints of right foot (ICD-10 - M25.571) 08/24/2022 Proteinuria, unspecified (ICD-10 - R80.9) 07/05/2023 Pain in right ankle and joints of right foot (ICD-10 - M25.571) 07/05/2023 Anxiety (ICD-10 - F41.9) Has controlled substance contract, urine drug screening up to date, [employer] reviewed - no concerning issues seen, refill was given on 06/30/2023 #180 with next refill due on or after 09/22/2023. Will need follow up appt in 3 months. 08/24/2022 Age-related osteoporosis without current pathological fracture (ICD-10 - M81.0) Reviewed and discussed DEXA scan results. Recommended to continue calcium/vitamin D supplements and start fosamax with repeat DEXA scan in 1-2 years. 07/05/2023 Acquired hypothyroidism (ICD-10 - E03.9) Will check thryoid labwork and adjust medication accordingly. 07/05/2023 Breast cancer screening by mammogram (ICD-10 - Z12.31) Cheri has an appt next month. 08/24/2022 Other 09/28/2022 Other This appointmen t is being conducted via Televideo. This encounter was face to face between provider and patient using interactive audio and video telecommunicatio n. Health care needs are being provided without a physical exam. Red Aril video inkjet operator was used for today's visit. Plan Of Treatment Pending Test Test Name Order Date Drug Abuse Screen 77 with Reflex to Conf irm urine 07/15/2023 Insurance Providers Payer Name Payer Address Payer Phone Subscriber Number Group Number Insured Name Patient Relationship to Insured Coverage Start Date Coverage End Date [facility] [address] [address] [place] [phone] [id number] Cali Warren Spouse - patient is the spouse of the insured 0 Medical (General) History Medical History History ICD Code Controlled substance [...] or family history of bleedin g problems No personal or family history of anesthe luis daniel problems Right ankle - fx with following surgical repair 1991 left breast bx over 10 years ago gallbladder and gallstones appendectomy 06-28-[address] anai green [place] Hospitalization History Reason Date(Month/Year)
--- OUTSIDE RECORDS SUMMARY | 2023-08-04 09:51 | XMS_ITS | Clinical Summary ---
Author Name Unknown Organization [facility] [employer] [facility] Address [place], [place] [address] Care Team Providers Care Mat Cutter Name Role Phone Daniel Carter MD Unavailable + [phone] Herminia Rabago Primary Care Provider + [phone] Allergies Active Allergy Reactions Criticality Noted Date Comments Nsaids (Non-Steroidal Anti-Inflammatory Drug) Other - Describe In Comment Field 04/29/2016 H/o milvia-n-y gastric bypass. AVOID NSAIDs, COX2 inhibitors, and aspirin due to risk of gastric and/or G-J anastomotic ulcers. If Vivienne must be on short course of NSAIDs or aspirin, use enteric coated if possible and use PPI // Jessenia Perales MD, Bariatrician, [facility] 10/18/2016 Medications Medication Sig Dispensed Refills Start Date End Date Status AMITRIPTYLINE 25 MG TABIndications:Major depressive disorder, recurrent episode, unspecified take three tablets by mouth nightly at bedtime 90 1 10/06/2006 Active ALPRAZolam (XANAX) 0.5 mg tablet Take 0.5 mg by mouth once daily if needed. 09/21/2015 Active atorvastatin (LIPITOR) 80 mg tablet 80 mg once daily. 3 08/08/2015 Active ONETOUCH ULTRA TEST strip 11 08/01/2015 Active buPROPion 75 mg tabletIndications:Bar iatric surgery status Take 1 tablet by mouth 2 times daily before meals. 60 tablet 3 04/30/2016 Active levothyroxine (SYNTHROID) 125 mcg tablet Take 125 mcg by mouth before breakfast. Active cyanocobalamin 1,000 mcg sublIndications:Achlo rhydria,Bariatric surgery status Place 1 tablet under the tongue once daily. 0 Active multivitamins pediatric chewable (FLINTSTONES MULTIVITAMIN) chewable tabletIndications:Ach lorhydria,Bariatric surgery status Take 1 tablet by mouth 2 times daily. 0 Active lisinopril (PRINIVIL; ZESTRIL) 20 mg tablet Take 20 mg by mouth once daily. 0 10/01/2016 Active metFORMIN (GLUCOPHAGE) 500 mg tablet Take 500 mg by mouth 2 times daily with meals. 4 10/01/2016 Active olopatadine (PATANOL) 0.1 % ophthalmic solution 5 08/26/2016 Active HYDROcodone-acetamino phen, 5-325 mg, (NORCO) per tablet as needed 0 10/02/2016 Active Cholecalciferol, Vitamin D3, (VITAMIN D-3) 5,000 unit tab Take 1 tablet by mouth once every other day. 0 Active calcium citrate/vitamin D3 (CALCIUM CITRATE CHEW, OTC,) 1 tablet once daily. Patient takes 1/2 tab daily crushed 0 11/09/2017 Active MOXIFLOXACIN 0.5% INTRACAMERAL INJECTION (SAMARIA AMB MIX) Use as directed for procedure. Refrigerate. Expires: 0.2 mL 03/30/2018 Active Active Problems Problem Noted Date Diagnosed Date Reactive hypoglycemia 10/22/2016 Overview: 10/22/2016 6 mo post RNY: severe reactive hypoglycemia (blood sugars 30s) w/ simple carbs. Having her meet with RD to re-enforce complex carbs+proteins with meals/snacks. Checking TSH (might be over-replaced on levothyroxine) //[facility] Weight [facility] Vitamin B 12 deficiency 04/30/2016 Overview: s/p bariatric surgery 04/29/16 (milvia-en-y gastric bypass) Increased lifelong risk malabsorption. Needs annual lab surveillance for nutritional deficiencies including vit B12. Laparoscopic milvia-en-y gastric bypass 04/29/2016 Overview: s/p LRNY 04/29/16 Dr Carter at [place] (initially 10/23/15: 235.2 lbs, BMI 36.03) Intestinal malabsorption following gastrectomy 0 04/29/2016 Overview: s/p bariatric surgery 04/29/16 (milvia-en-y gastric bypass) Increased lifelong risk malabsorption. Needs annual lab surveillance for nutritional deficiencies, especially Hgb w/ iron stores, vit D and parathyroid hormone, and vitamin B12. Vitamin D deficiency 11/11/2015 Overview: s/p bariatric surgery 04/29/16 (milvia-en-y gastric bypass) Increased lifelong risk malabsorption. Needs annual lab surveillance for nutritional deficiencies including vit D and parathyroid hormone. - 11/11/15: vit D 25.0 (bariatric program advised start vit D3 5000 units/day) Hyperlipidemia 10/23/2015 Overview: Statin S/p RNY bariatric surgery 04/29/16 (pre-op BMI 36.03) Diabetes mellitus without complication 5 Overview: Managed by PCP at [facility] - 04/29/16: RNY bariatric surgery (pre-op BMI 36.03) - 10/22/16: taking metformin 500mg BID, BMI 24.23, HgbA1C 5.1% PAIN IN JOINT, ANKLE/FOOT 12/01/2000 Depression with anxiety 12/01/2000 Overview: Bupropion, alprazolam Hypothyroidism 03/26/1999 Overview: levothyroxine Resolved Problems Problem Noted Date Diagnosed Date Resolved Date OBESITY DISEASE: h/o obesity , Class II, BMI 35-39.9, with comorbidity (DM2) 11/10/19 18 Overview: s/p LRNY 04/29/16 Dr Carter at [place] (initially 10/23/15: 235.2 lbs, BMI 36.03) - 10/22/2016 (6 months post-RNY): 158.2 lbs, BMI 24.23 Immunizations Name Administration Dates Next Due COVID-19 vaccine (Moderna 100mcg/0.5mL) PFALONDRA 07/01/2020,06/03/2020 Influenza, IIV4 01/13/2016 Family History Medical History Relation Name Comments Obesity Brother Heart attack Father Hyperlipidemia Father Obesity Father Good Health Maternal Grandfather Obesity Maternal Grandmother Stroke Maternal Grandmother Heart Disease Mother Hyperlipidemia Mother Hypertension Mother Parkinsonism Mother Good Health Paternal Grandfather Obesity Paternal Grandmother Obesity Sister Relation Name Status Comments Brother Alive Father Maternal Grandfather (Age 101) Maternal Grandmother (Age 68) Mother (Age 74) Paternal Grandfather (Age 100) Paternal Grandmother (Age 75) Sister Alive Social History Tobacco Use Types Packs/Day Years Used Date Smoking Tobacco: Former Cigarettes 1 11 0 08/08/1992 - 08/09/2003 Smokeless Tobacco: Never Comments:Smoking History Pac ks/day: <1 Alcohol Use Standard Drinks/Week Comments No 0 (1 standard drink = 0.6 oz pur e alcohol) Sex and Gender Information Value Date Recorded Sex Assigned at Not on file Gender Identity Not on file Sexual Orientation Not on file Obstetrics History Last Filed Vital Signs Vital Sign Reading Time Taken Comments Blood Pressure 128/69 12/06/2018 1:24 PM CDT Pulse 63 12/06/2018 1:24 PM CDT Temperature 36.7 ??C (98.1 ??F) 10/18/2017 7:16 AM CD T Respiratory Rate 20 12/27/2017 11:22 AM CDT Oxygen Saturation 97% 12/27/2017 11:22 AM CDT Inhaled Oxygen Concentration - - Weight 64.4 kg (142 lb) 12/06/2018 1:24 PM CDT Height 172.1 cm (5' 7.75) 12/06/2018 1:24 PM CD T Body Mass Index 21.75 12/06/2018 1:24 PM CDT Plan of Treatment Upcoming Encounters Date Type Department Care Team (Late st Contact Info) Description 08/26/2023 9:00 AM CDT Office Visit [facility] [place] [facility] [address] [place] [address] Yesica Feldman MBBS [address] [place] [address] Health Maintenance Due Date Last Done Comments Tdap 1966 Depression screening for age 12+ 1967 Hepatitis C screening for ag e 18-79 1973 Tetanus booster 1975 Colonoscopy through age 75 01/13/2000 Mammogram for age 45-75 01/13/2000 Zoster (shingles) series for age 50+ (1 of 2) 2005 BMI (ht and wt on same day) for age 18+ 12/07/2019 12/06/2018, 12/06/2018, 11/09/2017, Additional history exists Pneumococcal series for age 65+ (1 of 1 - PCV) 01/13/2020 Lipids for age 45-75 11/10/2020 11/11/2015, 07/08/19 07 COVID-19 vaccine series ( season) 2022 07/01/2020, 06/03/2020 Influenza for age 65+ 11/21/2023 01/13/2016 DEXA/DXA scan for age 65+ Completed 07/21/2022, Procedures Procedure Name Priority Date/Time Associated Diagnosis Comments XR DXA BONE DENSITY 2 SITES AXIAL Routine 07/21/2022 10:48 AM CDT Encounter for screening for osteoporosis Asymptomatic menopause LIPID PANEL W REFLEX MEASURED LDL Routine 11/11/2015 11:50 AM CDT Obesity (BMI 35.0-39.9 without comorbidity) DIABETES MELLITUS - TYPE II Hyperlipidemia, unspecified hyperlipidemia type from Last 3 Months or Most Recently Relevant to Health Maintenance Results * (ABNORMAL) XR DXA BONE DENSITY 2 SITES AXIAL (07/21/2022 10:48 AM CDT) Anatomical Region Laterality Modality Spine, HIPS, HIPL, HIPR Other Impressions 07/22/2022 1:05 PM CDT Osteoporosis. RECOMMENDATIONS: The National Osteoporosis Foundation recommends pharmacologic treatment for patients with T-scores of -2.5 or less, patients with prior history of fragility fractures, or patients with 10-year probability of greater than 3% at hips or greater than 20% of suffering major osteoporotic fractures. Recommend continued optimization of calcium and vitamin D intake through dietary means and/or supplementation and regular exercise. Consider pharmacologic therapy for osteoporosis. Follow-up bone density reading in 2 years if therapy initiated to assess therapeutic efficacy. Jada Collins PA-C [facility] 07/22/2022 Narrative 07/22/2022 1:05 PM CDT For Patients: Results are automatically released to your [facility] ([email or web address]) account once available, in compliance with federal regulations. This means that you may see your results before your provider has had a chance to review them. Please allow 2-3 business days for your provider to comment on the results. XR DXA Bone Mineral Density (BMD) EXAM LOCATION: [facility] [address] [facility] [address] PATIENT NAME: Vivienne Warren DATE OF : 1955 EXAM DATE: 07/21/2022 REQUESTING PROVIDER: Herminia Rabago PA GENDER AT : female HEIGHT: 5' 7.75 (12/06/2018) WEIGHT: ??142 lb (12/06/2018) MENOPAUSAL STATUS: Postmenopausal RACE/ETHNICITY: White RISK FACTORS: Bariatric Surgery, Diabetes Type 1, Family History of Hip Fracture (parental), Height Loss (2 inches or more), History of Fragility Fracture (at a major site), Smoking (prior) and White Race CURRENT MEDICATION FOR BONE LOSS: NONE INDICATION: Screening for osteoporosis COMPARISON DATE(S): 2018 DXA scans are compared to prior studies for a patient only when the two (or more) studies were performed on the same scanner. It is not possible to compare data generated on one scanner to data from another because there are not standards in DXA equipment. This applies even if the two scanners are made by the same remote ruby on rails developer. PROCEDURE: Dual-energy x-ray absorptiometry performed with routine technique. Reporting is completed in the form of a T-score. The T-score represents the standard deviation from peak bone mass based on young healthy adult. A Z-score is used for diagnosis in premenopausal women, and for men under the age of 50. FINDINGS: RESULT LUMBAR SPINE L1 - L4 BMD: 0.916 g/cm2 T-Score: - 2.2 Z-Score: - 0.9 Change from prior in 2018: ??Decrease 6.3%. RESULTS FEMUR Left femoral neck BMD: 0.696 g/cm2 T-Score: - 2.5 Z-Score: - 1.1 Change from prior in 2018: ??Decrease 7.9%. Left hip BMD: 0.664 g/cm2 T-Score: - 2.7 Z-Score: - 1.6 Change from prior in 2018: ??Decrease 5.5%. WHO criteria: Normal: T-score at or above -1 SD Osteopenia: T-score between -1.1 and -2.4 SD Osteoporosis: T-score at or below -2.5 SD FRAX RISK CALCULATION (USED FOR OSTEOPENIA ONLY): 10-year probability of major osteoporotic fracture: 35.6%. 10-year probability of hip fracture: 7.6%. Herminia CASTRO DEXA * LIPID PANEL W REFLEX MEASURED LDL [[id number]] (11/11/2015 11:50 AM CDT) [facility] CHOLESTEROL,TOTAL 155 100 - 199 mg/dL 11/11/2015 12:19 PM T [facility] TRIGLYCERIDES 143 <150 mg/dL 11/11/2015 12:19 PM T [facility] HDL CHOLESTEROL 58 >40 mg/dL 11/11/2015 12:19 PM T [facility] NON-HDL CHOLESTEROL 97 <145 mg/dl 11/11/2015 12:19 PM [facility] CHOL/HDL RATIO 2.67 <4.50 11/11/2015 12:19 PM T [facility] LDL CHOLESTEROL 68 <=130 mg/dL 11/11/2015 12:19 PM T [facility] PATIENT STATUS FASTING 11/11/2015 12:19 PM T [facility] Blood BLOOD SPECIMEN / Unknown Venipuncture / Unknown 11/11/2015 11:50 AM CDT 11/11/2015 11:56 AM CDT Daniel Carter MD CHEMISTRY [facility] SENDOUT [place] [address] [address] [address] [place] [address] from Last 3 Months or Most Recently Relevant to Health Maintenance Advance Directives * Full Code (Latest Code Status on File) Date Activated Date Inactivated Comments 04/29/2016 2:20 PM 05/01/2016 7:23 PM * Full Code Date Activated Date Inactivated Comments 04/29/2016 7:32 AM 04/29/2016 2:20 PM Care Teams Mat Cutter Relationship Specialty Start Date End Date Herminia Rabago PA [address] [place] [address] PCP - General 10/15/17 Daniel Carter MD General Surgery Bariatric Surgeon 05/19/16
== END 2023-08-04 09:48 | disposition home or self-care (01) ==
LOC: MAMMO 09:48
PROVIDERS: Visit Provider Physician Assistant
DX: Z12.31 Encounter for screening mammogram for malignant neoplasm of breast (principal); R92.2 Inconclusive mammogram
CPT/HCPCS: 77063; 77067

== ENCOUNTER 2023-10-01 06:02 | Emergency (ER) | payer BC, SELFPAY ==
[2023-10-01] VITALS (23 sets, daily range): BP systolic 92–138; BP diastolic 61–100; PULSE 72–140; RESP 16–22; TEMP 36.4–36.6; O2SAT 78–100; BMI 21.5
--- NOTE | 2023-10-01 06:26 | ED_ITS ---
HPI - Arrhythmia/Palpitations General Chief Complaint: Arrhythmia/Palpitations Stated Complaint: racing heart Time Seen by Provider: 10/01/23 06:25 History of Present Illness HPI narrative: Patient is a a 68-year-old woman with history of paroxysmal atrial fibrillation who presents with tachycardia. She has been cardioverted in the past for atrial fibrillation and feels like she has to be cardioverted again. Her pulse is been creeping up the last several days and she did speak with the contractor field hauling who recommended increase metoprolol. He also recommended cardioversion if symptoms did not improve. Patient has been compliant with her Xarelto and has not missed any doses. She feels like her chest is having because of her heart rate being fast. She is somewhat short of breath. She has had no overt chest pain orthopnea no PND no nausea no vomiting no lower extremity edema. Patient is otherwise in her usual state of health. Her medications are reviewed again confirming that she is fully anticoagulated. She is status post TAVR as well. Related Data Home Medications ?Medication ?Instructions ?Recorded ?Confirmed acetaminophen 500 mg tablet 500 mg PO PRN 01/29/22 01/29/22 alprazolam 0.5 mg tablet 0.5 mg PO .Bedtime as needed PRN 01/29/22 01/29/22 amitriptyline 25 mg tablet 25 mg PO .Bedtime 01/29/22 01/29/22 ascorbic acid (vitamin C) 500 mg 500 mg PO DAILY 01/29/22 01/29/22 tablet aspirin 81 mg chewable tablet 81 mg PO BID 01/29/22 01/29/22 atorvastatin 80 mg tablet 80 mg PO .Bedtime 01/29/22 01/29/22 bupropion HCl 75 mg tablet mg PO BID 01/29/22 01/29/22 calcium carbonate 500 mg PO DAILY 01/29/22 01/29/22 celecoxib 200 mg capsule 200 mg PO DAILY 01/29/22 01/29/22 cholecalciferol (vitamin D3) 25 PO DAILY 01/29/22 01/29/22 mcg (1,000 unit) tablet cyanocobalamin (vitamin B-12) 1,000 mcg PO .2X/Week 01/29/22 01/29/22 1,000 mcg tablet ferrous sulfate 325 mg (65 mg 325 mg PO DAILY 01/29/22 01/29/22 iron) tablet levothyroxine 125 mcg tablet 125 mcg PO DAILY 01/29/22 01/29/22 lisinopril 20 mg tablet 20 mg PO DAILY 01/29/22 01/29/22 metformin 500 mg tablet 500 mg PO 01/29/22 01/29/22 xerelto 10/01/23 Previous Rx's ?Medication ?Instructions ?Recorded celecoxib 100 mg capsule 100 mg PO BID PRN pain #90 caps 01/29/22 rivaroxaban 20 mg tablet 20 mg PO DAILY #30 tabs 01/05/23 Allergies Allergy/AdvReac Type Severity Reaction Status Date / Time No Known Drug Allergies Allergy Verified 01/27/22 08:25 Review of Systems Status of ROS: Reports: 10 or more systems reviewed and unremarkable except as noted in History and below [facility] Medical History Tobacco use (10/18/06) ?Z72.0 - Tobacco use (ICD-10) Seasonal allergies (10/18/06) ?J30.2 - Other seasonal allergic rhinitis (ICD-10) Ankle fracture, right (10/18/06) ?S82.891A - Other fracture of right lower leg, initial encounter for closed fracture (ICD-10) Hyperlipidemia (10/18/06) ?E78.5 - Hyperlipidemia, unspecified (ICD-10) Fracture of right femur ?S72.91XA - Unspecified fracture of right femur, initial encounter for closed fracture (ICD-10) Elevated liver function tests ?R79.89 - Other specified abnormal findings of blood chemistry (ICD-10) Constipation ?K59.00 - Constipation, unspecified (ICD-10) Back pain ?M54.9 - Dorsalgia, unspecified (ICD-10) Abdominal pain ?R10.9 - Unspecified abdominal pain (ICD-10) Liver failure ?K72.90 - Hepatic failure, unspecified without coma (ICD-10) Anxiety ?F41.9 - Anxiety disorder, unspecified (ICD-10) Depression ?F32.A - Depression, unspecified (ICD-10) Diabetes ?E11.9 - Type 2 diabetes mellitus without complications (ICD-10) Hypertension ?I10 - Essential (primary) hypertension (ICD-10) Hypothyroid ?E03.9 - Hypothyroidism, unspecified (ICD-10) Surgical History History of open reduction and internal fixation (ORIF) procedure ?Z98.890 - Other specified postprocedural states (ICD-10) History of gastric bypass ?Z98.84 - Bariatric surgery status (ICD-10) History of cataract surgery ?Z98.49 - Cataract extraction status, unspecified eye (ICD-10) H/O: hysterectomy ?Z90.710 - Acquired absence of both cervix and uterus (ICD-10) History of cholecystectomy ?Z90.49 - Acquired absence of other specified parts of digestive tract (ICD-10) Hx of appendectomy ?Z90.49 - Acquired absence of other specified parts of digestive tract (ICD- 10) Social History Smoking Status: Former smoker Do you use any of these nicotine containing products: None Second hand tobacco smoke exposure: No How often do you have a drink containing alcohol: never How often do you have six or more drinks on one occasion: Never AUDIT-C Alcohol total score: 0 Non-prescribed substance use: denies use and marijuana (any form) Non-prescribed substance use details: gummy at bedtime service: No Exam Narrative: Exam Narrative: EXAM GENERAL: Patient appears comfortable and well. EYES: No scleral icterus. LYMPH: No supraclavicular or cervical lymphadenopathy. SKIN: Visible skin seen during exam normal or with benign process only. EXT: No dependent lower extremity pedal edema. HEART: Regular rhythm with tachycardic rate. LUNGS: Clear to auscultation bilaterally with no crackles or wheezes. ABD: Soft, non tender, non distended. PSYCH: Good eye contact, speech is not pressured. Const: Vital Signs, click to edit/add: Vital Signs - 24 hr 10/01/23 06:17 10/01/23 07:00 10/01/23 07:05 Temperature 97.6 F Pulse Rate [Pulse Oximeter] 140 H 83 80 Respiratory Rate 22 16 16 Blood Pressure [Ri ght Upper Arm] 138/100 H 104/67 96/77 Pulse Oximetry 95 99 99 Oxygen Delivery Me thod Room Air Nasal Cannula Nasal Cannula Oxygen Flow Rate 2 2 10/01/23 07:10 Temperature 97.8 F Pulse Rate [Pulse Oximeter] 80 Respiratory Rate 16 Blood Pressure [Ri ght Upper Arm] 109/74 Pulse Oximetry 100 Oxygen Delivery Me thod Nasal Cannula Oxygen Flow Rate 2 Course Course ED Course: Patient seen examined. Troponin CBC basic metabolic panel EKG chest x-ray pending. Likely we will be cardioverting her. Reevaluation(s) Reevaluation #1: With anesthesia's assistance patient was treated with propofol and was cardioverted using 200 joules of synchronized cardioversion. She is now back in sinus rhythm labs pending. Vital Signs Vital signs: Initial Vital Signs Temperature 97.6 F 10/01/23 06:17 Temperature Source Temporal Artery Scan 10/01/23 06:17 Pulse Rate 140 H 10/01/23 06:17 Respiratory Rate 22 10/01/23 06:17 Blood Pressure 138/100 H 10/01/23 06:17 Blood Pressure Mean 112 H 10/01/23 06:17 Blood Pressure Position Supine 10/01/23 06:17 Pulse Oximetry 95 10/01/23 06:17 Oxygen Delivery Method Room Air 10/01/23 06:17 Vital Signs Temperature 97.6 F 10/01/23 06:17 Pulse Rate 140 H 10/01/23 06:17 Respiratory Rate 22 10/01/23 06:17 Blood Pressure 138/100 H 10/01/23 06:17 Pulse Oximetry 95 10/01/23 06:17 Oxygen Delivery Method Room Air 10/01/23 06:17 Temperature 97.8 F 10/01/23 07:10 Pulse Rate 74 10/01/23 08:02 Respiratory Rate 16 10/01/23 07:10 Blood Pressure 102/68 10/01/23 08:02 Pulse Oximetry 78 L 10/01/23 08:02 Oxygen Delivery Method Nasal Cannula 10/01/23 07:10 Oxygen Flow Rate 2 10/01/23 07:10 MDM - Arrhythmia/Palpitations MDM Narrative Medical decision making narrative: Patient presents with atrial fibrillation with rapid ventricular response. She has paroxysmal atrial fibrillation is fully anticoagulated on rivaroxaban. Patient has been successfully cardioverted in the past. She is status post TAVR as well. After explaining the risks and benefits of the procedure I did with anesthesia in the form of propofol perform a synchronized cardioversion with 200 joules cardioverting her back in a sinus rhythm. Labs drawn prior to cardioversion are reassuring. Patient has returned to sinus rhythm of 75 beats per minute and feels well. This time she can be discharged home with outpatient follow-up. She they are in contact with her contractor field hauling and will continue to be in close contact with regards to any potential med changes. All questions were answered. Lab Data Labs: Lab Results 10/01/23 Range/Units 06:25 WBC 9.84 (4.50-11.00) K/uL RBC 3.85 L (4.00-5.20) m/uL Hgb 12.5 (12.0-16.0) gm/dL Hct 39.5 (33.0-51.0) % MCV 103 H (80-100) fL MCH 33 (26-34) pg MCHC 32 (32-36) gm/dL RDW Coeff of Jose 13.7 (11.5-15.5) % Plt Count 279 (140-440) K/uL Neut % (Auto) 72.8 H (42.0-72.0) % Lymph % (Auto) 17.4 L (20-44) % [place] % (Auto) 7.3 (0.0-11.0) % Eos % (Auto) 1.8 (0.0-7.0) % Baso % (Auto) 0.5 (0.0-3.0) % Neut # (Auto) 7.20 H (1.7-7.0) K/uL Lymph # (Auto) 1.70 (0.90-2.90) K/uL [place] # (Auto) 0.70 (0.00-0.90) K/UL Eos # (Auto) 0.18 (0.00-0.50) K/uL Baso # (Auto) 0.05 (0.00-0.30) K/uL Abs Immat Gran (auto) 0.02 (0.00-0.30) K/uL Imm/Tot Granulo (auto) 0.2 % Sodium 140 (135-149) mmol/L Potassium 4.0 (3.6-5.1) mmol/L Chloride 108 (96-114) mmol/L Carbon Dioxide 26 (20-32) mmol/L Anion Gap 6 L (7-15) mEq/L BUN 13 (7-30) mg/dL Creatinine 0.5 (0.5-1.5) mg/dL Estimated Creat Clear 57.83 Estimated GFR 102 ml/min Glucose 179 H (60-115) mg/dL Calcium 8.7 (8.4-10.6) mg/dL Troponin I < 0.01 L (0.01-0.04) ng/mL Discharge Plan Discharge Clinical Impression: Atrial fibrillation Patient Disposition: Home, Self-Care Condition: Stable Instructions: A-fib (Atrial Fibrillation) (ED) Additional Instructions: Continue current medications Rest Follow-up with your doctor as discussed next week. Activity Level: No Restrictions Discharge Diet: Regular Prescriptions: No Action cholecalciferol (vitamin D3) 25 mcg (1,000 unit) tablet PO DAILY bupropion HCl 75 mg tablet PO BID levothyroxine 125 mcg tablet 125 mcg PO DAILY ferrous sulfate 325 mg (65 mg iron) tablet 325 mg PO DAILY ascorbic acid (vitamin C) 500 mg tablet 500 mg PO DAILY calcium carbonate 500 mg calcium (1,250 mg) tablet 500 mg PO DAILY amitriptyline 25 mg tablet 25 mg PO .Bedtime alprazolam 0.5 mg tablet 0.5 mg PO .Bedtime as needed PRN cyanocobalamin (vitamin B-12) 1,000 mcg tablet 1,000 mcg PO .2X/Week lisinopril 20 mg tablet 20 mg PO DAILY atorvastatin 80 mg tablet 80 mg PO .Bedtime metformin 500 mg tablet 500 mg PO celecoxib 200 mg capsule 200 mg PO DAILY aspirin 81 mg tablet,chewable 81 mg PO BID Rx Instructions: Start aspirin after rivaroxaban is done in 3 days acetaminophen 500 mg tablet 500 mg PO PRN celecoxib 100 mg capsule 100 mg PO BID PRN (Reason: pain) Qty: 90 0RF rivaroxaban 20 mg tablet 20 mg PO DAILY Qty: 30 2RF Rx Instructions: must administer with evening meal xerelto Follow Up/Referrals: Provider,Not a Local [Primary Care Provider] - Stand Alone Forms: [employer] Info Instructions
--- OUTSIDE RECORDS SUMMARY | 2023-10-01 06:40 | XMS_ITS | Patient Health Record ---
Author Organization [facility] S Address [address] [id number] Care Team Providers Care Cloth Beamer Name Role Phone Herminia Rabago PA-C Primary Care Provider [phone] Allergies No Known Allergies Results Component Value Reference Range Notes Urine Drug Screen Reviewed date:07/16/2023 03:39:39 PM Interpretation:positive - cannabis Performing Lab: Notes/Report: Lipid [place] Reviewed date:07/06/2023 03:00:16 PM Interpretation: Performing Lab: Notes/Report: Cholesterol 114 <200 mg/dL Triglycerides 64 <150 mg/dL Direct Measure HDL 73 >=50 mg/dL LDL Cholesterol Calculated 28 <=100 mg/dL Non HDL Cholesterol 41 <130 mg/dL GLYCOSYLATED HGB A1C Reviewed date:07/05/2023 10:10:07 AM Interpretation:5.5 Performing Lab: Notes/Report: Comprehensive Metabolic Reviewed date:07/06/2023 03:00:35 PM Interpretation: Performing Lab: [...] 3.5-5.2 g/dL Bilirubin Total 0.4 <=1.2 mg/dL CBC with Platelets And Diffe rential Reviewed [...] <=0.4 10e3/uL Absolute NRBCs 0.0 PERFORMED BY: [facility], [place] [id number] [place] [id number],[facility] [id number] . PREMIER URINE DRUG SCREEN Reviewed date:07/06/2023 08:01:08 AM Interpretation: Performing Lab: Notes/Report: TSH Reviewed date:07/06/2023 03:00:25 PM Interpretation:normal - 1.29 Performing Lab: Notes/Report: TSH 1.29 0.30-4.20 uIU/mL Albumin Quantitative Random Urine Reviewed date:07/12/2023 10:36:30 [...] integrated into the clinical context for interpretation. Comprehensive Metabolic Reviewed date:10/02/2022 04:16:18 PM Interpretation:AST-81, ALT-312 Performing [...] GFR Estimate >90 >60 mL/min/1.73m2 PERFORMED BY: [facility], [place] [id number] [place] [id number],[facility] [id number] . GLYCOSYLATED HGB A1C Reviewed date:01/19/2023 11:32:05 AM Interpretation:6.3 Performing Lab: Notes/Report: Comprehensive Metabolic Reviewed date:01/20/2023 10:06:30 AM Interpretation:AST-106, ALT-79 Performing [...] Bilirubin Total 0.3 <=1.2 mg/dL PERFORMED BY: [facility], [place] [id number] [place] [id number],[facility] [id number] . Hepatitis C Antibody Reviewed date:10/02/2022 04:16:50 PM Interpretation:negative Performing Lab: Notes/Report: Hepatitis C Antibody Nonreactive Nonreactive Assay performance characteristics have not been established for newborns, infants, and children. PERFORMED BY: [facility], Specialty Lab [address] [place] [id number] Hepatitis B Surface Antigen Reviewed date:10/02/2022 04:16:35 PM Interpretation:negative Performing Lab: Notes/Report: Hepatitis B Surface Antigen Nonreactive Nonreactive PERFORMED BY: [facility], Specialty Lab [address] [place] [address] Reason For Referral Reason ultrasound is mildly abnormal, but no clear cause is found. Referral to liver specialist is recommended. Referral Organization [facility] Referring Provider First Name Herminia Referring Provider Last Name Hima [facility] Referred Organization [facility] Referred Provider RAFAEL LIM Referred Address [address] [place], [place],[address], Referred Provider Specialty Gastroentero logy Clinical Notes Serene Rucker 10/01/2022 01:33:25 PM > Referral sent to clinic to contact Patient. Referral Priority Routine Reason Referral to see a Ca rdiologist; Atrial Fibrillation. Please call Vivienne to schedule an appointment. Thank You. Diagnosis 1 Paroxysmal atrial fi brillation (I48.0) Referral Organization [facility] Referring Provider First Name Herminia Referring Provider Last Name Hima Referring Provider [facility] Referred Organization [facility] Referred Address [address],[place], [place],[address],[place] Referred Provider Specialty CARDIOLOGY General Notes Referral to see a Ca rdiologist; Atrial Fibrillation. Please call Vivienne to schedule an appointment. Thank You. Clinical Notes Gabriel Charlton 07/07/19 01:27:39 PM > RECORDS & ORDER FAXED TO : [facility]. , Gabriel Charlton 07/07/2023 01:27:40 PM > [phone], Gabriel Charlton Ms 07/07/2023 01:27:40 PM > Called Vivienne. Informed [...] Vaccine Route Administration Date Status Comme nts Zoster vaccine, live Unknown 12/18/2012 Administered Zoster Vaccine (Shingrix) Unknown 07/17/2020 Administer ed Zoster Vaccine (Shingrix) Unknown 10/01/2020 Administer ed Tdap (Boostrix 7 years & older ) Unknown 12/31/2012 Administered Pneumococcal 23 Adult IM Intramuscular 10/12/2018 Administ ered Pneumococcal 13 (Prevnar) Unknown 07/17/2020 Administer ed Influenza Fluzone High Dose Unknown 01/10/2022 Administered Influenza FLUAD 65 and older (Quadrivalent) Unknown 12/30/2022 Administered Influenza 6 months and older WITH Preservative IM Intramuscular 01/25/2019 Administered Influenza 3 Years and above WITH Preservative IM Intramuscular 12/14/2014 Administered Influenza (Flulaval) 3 years and up WITH preservative IM Intramuscular 01/13/2016 Administered Covid-19 (Spikevax-MOD 23-24) Unknown 12/30/2022 Administered Covid Vaccine (Pfizer) 12 and older Unknown 10/13/2021 Administered Covid Vaccine (Moderna) Unknown 06/03/2020 Administered Covid Vaccine (Moderna) Unknown 07/01/2020 Administered Covid Vaccine (Moderna) Unknown 01/21/2021 Administered Adult RSV Vaccine Unknown 11/30/2022 Administered Social History Tobacco Use: Social History Observation Description Date Details (start date - stop date) Never Smoker NA - NA Tobacco Status Question Answer Notes I am: never smoker Problems Problem Type SNOMED Code ICD Code Onset Dates Problem Status W/U Status Risk Notes Problem 917209081 Paroxysmal atria l fibrillation (I48.0) Active confirmed Problem 93249527 Anxiety (F41.9) Active confirmed Problem 20439542 Venous insufficiency (I87.2) Active confirmed Problem 348294150 Allergic conjunctivitis (H10.10) Active confirmed Problem 00543705 Depression, tucker r, recurrent, 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) Active confirmed Problem 629606384 Acquired hypothyroidism (E03.9) Active confirmed Problem 364444960 Other chronic pa in (G89.29) Active confirmed Problem 99703909 Proteinuria, unspecified (R80.9) Active confirmed Problem 204308221 Bariatric surger y status (Z98.84) Active confirmed Problem 221462229 Other thrombophi tiago (D68.69) Active confirmed Problem 69160281 Type 2 diabetes mellitus with other diabetic kidney complication (E11.29) Active confirmed Problem 324821189 Pain in right an kle and joints of right foot (M25.571) Active confirmed Problem 33056492 Age-related osteoporosis without current pathological fracture (M81.0) Active confirmed Problem 358031352 Non morbid obesi ty due to excess calories (E66.09) Active confirmed Problem 46720510 Type 2 diabetes mellitus without complication (E11.9) Active confirmed Problem 43748531 Allergic rhiniti s due to other allergen (J30.89) Active confirmed Problem 83902027 Hyperlipidemia, unspecified hyperlipidemia type (E78.5) Active confirmed Problem 11119272 Essential hypertension with goal blood pressure less than 140\/90 (I10) Active confirmed Problem 39200747 Abdominal aortic aneurysm (AAA) without rupture (I71.4) Active confirmed Problem 91402657 Cataract of both eyes, unspecified cataract type (H26.9) Active confirmed Problem 034363085 Infrarenal abdominal aortic aneurysm (AAA) without rupture (I71.43) Active confirmed Vital Signs Blood pressure diastolic 70 mm Hg 07/05/2023 Oximetry 100 07/05/2023 Height 68 in 07/05/2023 Blood pressure systolic 132 mm Hg 07/05/2023 Weight 145.8 lbs 07/05/2023 BMI 22.17 kg/m2 07/05/2023 Encounters Encounter Location Date Provider Diagnosis [address] [id number] 09/30/2022 Herminia Rabago [address] [id number] 10/02/2022 Herminia Rabago [address] [id number] 12/16/2022 Herminia Rabago [address] [id number] 04/06/2023 Herminia Rabago Other chronic pain G89.[address] [id number] 04/07/2023 Herminia Rabago [address] [id number] 07/04/2023 Herminia Rabago Other chronic pain G89.[address] [place] [id number] 07/05/2023 Herminia Walker [facility] [address] [facility] [place] [id number] 07/14/2023 Herminia Walker [facility] [address] [facility], [place] [id number] 07/16/2023 Hermiina Walker [facility] [address] [facility], [place] [id number] 09/30/2023 Herminia Walker [facility] [address] [facility], [place] [id number] 12/01/2022 Herminia Walker [facility] [address] [facility], [place] [id number] 12/16/2022 Herminia Walker [facility] [address] [facility], [place] [id number] 12/16/2022 Herminia Walker [facility] [address] [facility], [place] [id number] 01/06/2023 Herminia Walker [facility] [address] [facility], [place] [id number] 01/11/2023 Herminia Hima Age-related osteoporosis without current pathological fracture M81.0 [facility] [address] [facility], [place] [id number] 03/29/2023 Herminia Walker [facility] [address] [place], [place] [id number] 03/31/2023 Herminia Hima Type 2 diabetes mellitus with other diabetic kidney complication E11.29 [facility] [address] [facility], [place] [id number] 04/05/2023 Herminia Walker Age-related osteoporosis without current pathological fracture M81.0 ; Depression, major, recurrent, in complete remission F33.42 ; Anxiety F41.9 and Other chronic pain G89.29 [facility] [address] [facility], [place] [id number] 04/07/2023 Herminia Walker [facility] [address] [facility], [place] [id number] 04/07/2023 Herminia Walker [facility] [address] [facility], [place] [id number] 04/29/2023 Herminia Walker [address] [id number] 05/06/2023 Herminia Rabago Other chronic pain G89.[address] [id number] 06/02/2023 Herminia Rabago [address] [id number] 06/02/2023 Herminia Rabago Other chronic pain G89.[address] [id number] 06/17/2023 Herminia Rabago Type 2 diabetes mellitus with other diabetic kidney complication E11.[address] [id number] 06/30/2023 Herminia Rabago Hyperlipidemia, unspecified hyperlipidemia type E78.5 ; Essential hypertension with goal blood pressure less than 140\/90 I10 ; Type 2 diabetes mellitus with other diabetic kidney complication E11.29 ; Acquired hypothyroidism E03.9 and Anxiety F41.[address] [id number] 07/09/2023 Herminia Rabago [address] [id number] 07/09/2023 Herminia Rabago [address] [id number] 07/14/2023 Herminia Rabago [address] [id number] 08/25/2023 Herminia Rabago [address] [id number] 07/05/2023 Herminia Rabago Infrarenal abdominal aortic aneurysm [...] and Breast cancer screening by mammogram Z12.[address] [id number] 01/19/2023 Herminia Rabago Proteinuria, unspecified R80.9 ; Essential hypertension with goal blood pressure less than 140\/90 I10 ; Type 2 diabetes mellitus with other diabetic kidney complication E11.29 ; Hyperlipidemia, unspecified hyperlipidemia type E78.5 ; Other chronic pain G89.29 ; Pain in right ankle and joints of right foot M25.571 and Anxiety F41.[address] [id number] 09/30/2022 Herminia Rabago Elevated LFTs R79.[address] [id number] 07/15/2023 Herminia Rabago Other chronic pain G89.29 and Pain in right ankle and joints of right foot M25.571 Assessments Encounter Date Diagnosis (ICD Code) Assessment Notes Treat ment Notes Treatment Clinical Notes 09/30/2022 Elevated LFTs (ICD-10 - R79.89) 01/11/2023 Age-related osteoporosis without current pathological fracture (ICD-10 - M81.0) 01/19/2023 Proteinuria, unspecified (ICD-10 - R80.9) 03/31/2023 [...] recurrent, in complete remission (ICD-10 - F33.42) 04/05/2023 Anxiety (ICD-10 - F41.9) 01/19/2023 Type 2 diabetes mellitus with other diabetic kidney complication (ICD-10 - E11.29) Guidelines: Ha1c less than 7.0. BP less than 140/90. Per guidelines, is taking recommended statin and dose. Nonsmoker. Taking ASA. Eye exam is up to date. Recheck in 3 months. 01/19/2023 Hyperlipidemia, unspecified hyperlipidemia type (ICD-10 - [...] remission (ICD-10 - F33.42) Stable, on medication. 01/19/2023 Other chronic pain (ICD-10 - G89.29) Has controlled substance contract, urine drug screening up to date, [employer] reviewed - no concerning issues seen, refill was given on 01/11/2023 for #180 with next refill due on or after 04/05/2023. Will need follow up appt in 3 months. 04/05/2023 Other chronic pain (ICD-10 - G89.29) 06/30/2023 Acquired hypothyroidism (ICD-10 - E03.9) 06/30/2023 Anxiety (ICD-10 - F41.9) 01/19/2023 Pain in right ankle and joints of right foot (ICD-10 - M25.571) 07/05/2023 Proteinuria, unspecified (ICD-10 - R80.9) Diabetes [...] contract, urine drug screening up to date, [employer] reviewed - no concerning issues seen, refill [...] not tested while she was in clinic. [employer] reviewed - no concerning issues seen, refill was given on 07/04/2023 #180 with next refill due on or after 09/27/2023. Will need follow up appt in 3 months. 07/05/2023 Pain in right ankle and joints of right foot (ICD-10 - M25.571) 07/05/2023 Anxiety (ICD-10 - F41.9) Has controlled substance contract, urine drug screening up to date, [employer] reviewed - no concerning issues seen, refill was given on 06/30/2023 #180 with next refill due on or after 09/22/2023. Will need follow up appt in 3 months. 07/05/2023 Acquired hypothyroidism (ICD-10 - E03.9) Will check thryoid labwork and adjust medication accordingly. 07/05/2023 Breast cancer screening by mammogram (ICD-10 - Z12.31) Cheri has an appt next month. Plan Of Treatment Pending Test Test Name Order Date Drug Abuse Screen 77 with Reflex to Conf irm urine 07/15/2023 Next Appt Details Provider Name:Herminia damon, 10/06/2023 09:00:00 AM, [address] [place], [place], [phone], Insurance Providers Payer Name Payer Address Payer Phone Subscriber Number Group Number Insured Name Patient Relationship to Insured Coverage Start Date Coverage End Date [facility] [address] [address] [place] [address] [id number] Critical access hospital Cali Warren Spouse - patient is the [...]
--- OUTSIDE RECORDS SUMMARY | 2023-10-01 06:41 | XMS_ITS | Clinical Summary ---
Author Organization [facility] Address [place], [place] [address] Care Team Providers Care Television Tube Inspector Name Role Phone Daniel Carter MD Unavailable + [phone] Herminia Rabago Primary Care Provider + [phone] Yesica Tracy Unavailable [phone] Allergies Active Allergy Reactions Criticality Noted Date Comments Nsaids (Non-Steroidal Anti-Inflammatory Drug) Other - Describe In Comment Field 04/29/2016 H/o milvia-n-y gastric bypass. AVOID NSAIDs, COX2 inhibitors, and aspirin due to risk of gastric and/or G-J anastomotic ulcers. If Vivienne must be on short course of NSAIDs or aspirin, use enteric coated if possible and use PPI // Jessenia Perales MD, Bariatrician, [facility] Weight Management 10/18/2016 Medications Medication Sig Dispensed Refills Start Date End Date Status AMITRIPTYLINE 25 MG TABIndications:Ana Luisa r depressive disorder, recurrent episode, unspecified take three tablets by mouth nightly at bedtime 90 1 10/06/2006 Active ALPRAZolam (XANAX) 0.5 mg tablet Take 0.5 mg by mouth once daily if needed. 09/21/2015 Active atorvastatin (LIPITOR) 80 mg tablet 80 mg once daily. 3 08/08/2015 Active ONETOUCH ULTRA TEST strip 11 08/01/2015 Active buPROPion 75 mg tabletIndications:B ariatric surgery status Take 1 tablet by mouth 2 times daily before meals. 60 tablet 3 04/30/2016 Active levothyroxine (SYNTHROID) 125 mcg tablet Take 125 mcg by mouth before breakfast. Active cyanocobalamin 1,000 mcg sublIndications:Ach lorhydria,Bariatric surgery status Place 1 tablet under the tongue once daily. 0 Active lisinopril (PRINIVIL; ZESTRIL) 20 mg tablet Take 20 mg by mouth once daily. 0 10/01/2016 Active metFORMIN (GLUCOPHAGE) 500 mg tablet Take 500 mg by mouth 2 times daily with meals. 4 10/01/2016 Active HYDROcodone-acetami nophen, 5-325 mg, (NORCO) per tablet as needed [...] procedure. Refrigerate. Expires: 0.2 mL 03/30/2018 Active Xarelto 20 mg tablet Take 20 mg by mouth once daily with evening meal. 07/14/2023 Active Ozempic 0.25 mg or 0.5 mg (2 mg/3 mL) pen Inject 0.5 mg subcutaneous once weekly. 06/18/2023 Active metoprolol succinate (Toprol XL) 25 mg Sustained-Release tabletIndications:P aroxysmal A-fib (HC) Take 1 Tablet (25 mg) by mouth once daily. 90 Tablet 3 08/26/2023 Active Active Problems Problem Noted Date Diagnosed [...] Laparoscopic milvia-en-y gastric bypass 04/29/2016 Overview: s/p JASON 04/29/16 Dr Carter at [place] (initially 10/23/15: 235.2 lbs, BMI 36.03) Intestinal [...] complication 5 Overview: Managed by PCP at [facility] - 04/29/16: RNY bariatric surgery (pre-op BMI 36.03) - 10/22/16: taking metformin 500mg BID, BMI 24.23, HgbA1C 5.1% PAIN IN JOINT, ANKLE/FOOT 12/01/2000 Depression with anxiety 12/01/2000 Overview: Bupropion, alprazolam Hypothyroidism 03/26/1999 Overview: levothyroxine Resolved Problems Problem Noted Date Diagnosed Date Resolved Date OBESITY DISEASE: h/o obesity , Class II, BMI 35-39.9, with comorbidity (DM2) 11/10/19 18 Overview: s/p JASON 04/29/16 Dr Carter at [place] (initially 10/23/15: 235.2 lbs, BMI 36.03) - 10/22/2016 (6 months post-RNY): 158.2 lbs, BMI 24.23 Encounters Date Type Department Care Team Description 09/29/2023 11:00 AM CDT - 09/29/2023 11:59 PM CDT Hospital Encounter [address] [address] Jovan Aaron, PT Gissel Alas, WARP HANGER 09/29/2023 Travel 09/28/2023 Telephone [facility] [address] [place] [address] Yesica Tracy MBBS Atrial Fibrillation 09/28/2023 Nurse Triage [facility] [address] [place] [address] Yesica Tracy MBBS Fast Heartbeat 09/20/2023 8:31 AM CDT - 09/20/2023 11:59 PM CDT Hospital Encounter [address] [address] Jovan Aaron, PT 09/20/2023 Travel 09/06/2023 9:00 AM CDT Office Visit [facility] [address] [place] [address] Cardiovascular Diagnostic Testing (Stress echo) 09/06/2023 Travel 08/26/2023 9:00 AM CDT Office Visit [facility] at [facility] [address] [place] [address] Yesica Tracy MBBS Consult (History of Afib) 08/26/2023 Travel from Last 3 Months Immunizations Name Administration Dates Next Due COVID-19 vaccine (Moderna 100mcg/0.5mL) ALONDRA NIXON 07/01/2020,06/03/2020 Influenza, IIV4 01/13/2016 Family History Medical [...] 0 08/08/1992 - 08/09/2003 Smokeless Tobacco: Never Tobacco Cessation:Counseling Given: Not Answered Comments:Smoking History Packs/day: <1 Alcohol Use Standard Drinks/Week Comments No 0 (1 standard drink = 0.6 oz pur e alcohol) Social Connections Answer Date Recorded Frequency of Communication with Friends and Fami ly Not on file 08/26/2023 Sex and Gender Information Value Date Recorded Sex Assigned at Not on file Gender Identity Not on file Sexual Orientation Not on file Obstetrics History Last Filed Vital Signs Vital Sign Reading Time Taken Comments Blood Pressure 116/63 09/06/2023 9:31 AM CDT Pulse 74 09/06/2023 9:31 AM CDT Temperature 36.7 ??C (98.1 ??F) 10/18/2017 7:16 AM CD T Respiratory Rate 16 08/26/2023 9:05 AM CDT Oxygen Saturation 99% 09/06/2023 9:31 AM CDT Inhaled Oxygen Concentration - - Weight 64.2 kg (141 lb 9.6 oz) 08/26/2023 9:05 A M CDT Height 175.3 cm (5' 9) 08/26/2023 9:05 AM CDT Body Mass Index 20.91 08/26/2023 9:05 AM CDT Plan of Treatment Health Maintenance Due Date Last Done Comments Pneumococcal series for age 65+ (1 of 2 - PCV) 1961 Tdap 1966 Depression screening for age 12+ 1967 Hepatitis C screening for ag e 18-79 1973 Tetanus booster 1975 Colonoscopy through age 75 01/13/2000 Mammogram for age 45-75 01/13/2000 Zoster (shingles) series for age 50+ (1 of 2) 2005 Lipids for age 45-75 11/10/2020 11/11/2015, 07/08/19 07 COVID-19 vaccine series ( season) 2023 12/30/2022, 10/13/2021, 01/21/2021, Additional history exists Influenza for age 65+ 11/21/2023 01/13/2016 BMI (ht and wt on same day) for age 18+ 08/25/2024 08/26/2023, 12/06/2018, 12/06/2018, Additional history exists DEXA/DXA scan for age 65+ Completed 07/21/2022, Procedures Procedure Name Priority Date/Time Associated Diagnosis Comments ECHO STRESS EXERCISE WO CONTRAST W COLOR W LTD DOPPLER Routine 09/06/2023 10:06 AM CDT Paroxysmal A-fib (HC) SCAN CORRESP-EKG RESULTS 08/27/2023 9:10 AM CDT EKG 12 LEAD Routine 08/26/2023 12:00 AM CDT Paroxysmal A-fib (HC) XR DXA BONE DENSITY 2 SITES AXIAL Routine 07/21/2022 10:48 AM CDT Encounter for screening for osteoporosis Asymptomatic menopause LIPID PANEL W REFLEX MEASURED LDL Routine 11/11/2015 11:50 AM CDT Obesity (BMI 35.0-39.9 without comorbidity) DIABETES MELLITUS - TYPE II Hyperlipidemia, unspecified hyperlipidemia type from Last 3 Months or Most Recently Relevant to Health Maintenance Results * ECHO STRESS EXERCISE WO CONTRAST W COLOR W LTD DOPPLER (09/06/2023 10:06 AM CDT) AORTIC VALVE MEAN PG 11 mmHg PEAK TR VELOCITY 2.1 m/s LVEDD 4.1 cm EJECTION FRACTION 60 - 65% Anatomical Region Laterality Modality Ultrasound 09/06/2023 9:29 AM CDT Narrative 09/06/2023 10:39 AM CDT STRESS ECHOCARDIOGRAM VIVIENNE CASTANO ?Accession#: ?? [id number] : ?1955 68 years Study Date: ?? 09/06/2023 9:29:42 AM Gender: F ? BP: ? 116/63 mmHg Height: 175.00 cm ? BSA: ?1.78 m? ? ? Weight: 64.00 kg ?Tech: ? MBF ?Referring MD: YESICA TRACY Site: ? [facility] Reading Location: Mobile OP Patient Location: Outpatient. Procedure: Stress Echo, Color Doppler and Limited Spectral Doppler. Juan stress echo. Indication for study: Paroxysmal A-fib Cardiac Rhythm: Regular.Study quality: Good. Final Impressions: 1. Submaximum stress test with 82.6% of age predicted maximum heart rate achieved. 2. During stress exam the patient developed no significant symptoms. 3. See separate report for EKG interpretation. 4. Post stress, normal left ventricular size, increased global systolic function with an estimated EF of 70 to 75%. 5. Negative stress echo for ischemia. 6. At rest there is normal left ventricular size and systolic function. 7. The aortic valve is trileaflet and sclerotic, mild stenosis(mean gradient 11 mm Hg) and no regurgitation. Stress Data: ? HR ?Systolic Diastolic Time Duration Minutes Seconds Baseline 63 bpm ?116 ?63 mmHg ?4 :54 ? Peak ? 125 bpm ?? 144 ?65 mmHg Max Pred HR ?151 % of Max ? 83% Double Product [id number] Echo Findings:This is a negative stress echo test for ischemia. Post stress, normal left ventricular size, increased global systolic function with an estimated EF of 70 to 75%. LV regional wall motion abnormalities are not present post exercise. EKG:See separate report for EKG interpretation. Exam Protocol:The patient presents with no significant symptoms at baseline. The patient exercised 4 min 54 sec to stage II according to the Juan stress echo protocol. Test terminated due to fatigue and shortness of breath. 7.0 METS were achieved. The patient achieved a heart rate of 125 bpm which is 82.6% of maximum predicted heart rate. Maximum systolic blood pressure was 144 [place] [id number]. Submaximum stress test with 82.6% of age predicted maximum heart rate achieved. The blood pressure response was normal. The patient developed no significant symptoms during the stress exam. Low (less than 1% annual mortality rate) non invasive risk stratification. Chamber Sizes and Function Normal left ventricular size, normal global systolic function with an estimated EF of 60 - 65%. LV regional wall motion abnormalities are not present. Right ventricular cavity size is normal, global systolic RV function is normal. RV wall thickness is normal. The right atrium is normal. The sinus of Valsalva is normal sized. The ascending aorta is normal sized. Valves, RV Pressures and Diastolic Function The aortic valve is trileaflet and sclerotic, mild stenosis and no regurgitation. The mitral valve is sclerotic, trace mitral regurgitation. The mitral valve peak velocity is 1.22 m/s and the mean gradient is 2.5 mmHg. The tricuspid valve is normal in structure. Tricuspid regurgitation is trace. The tricuspid regurgitant velocity is 2.1 m/s, the estimated right ventricular systolic pressure is 17 mmHg plus right atrial pressure. Masses, Effusion, Shunts There is no pericardial effusion. MEASUREMENTS AND CALCULATIONS 2-D Measurements and LV Function: LVID (d) 4.1 cm LV FS% (2D) ?? 55 % LVID (s) 1.8 cm LVOT diameter 2.4 cm IVS (d) ??1.1 cm HR ?63 bpm LVPW (d) 1.0 cm Asc Ao ?? 3.1 cm Aortic Valve: Vmax ? 2.3 m/s ??CARLOTA (V) ?? 2.56 cm? ? ? VTI ?0.51 m ?? CARLOTA (I) ?? 2.55 cm? ? ? LVOT V max 1.3 m/s ??Max PG ?21 mmHg LVOT VTI ?? 0.29 m ?? Mean PG ?? 11 mmHg SV ? 131 ml ?? Dim Index 0.56 SV index ?? 74 ml/m? ? ? Mitral Valve: MV Mean G 3 mmHg MV VTI ?0.47 m Tricuspid Valve and estimated PA pressures: TR Vmax 2.1 m/s TR maxG 17 mmHg . Report modified by Nikko Jimenez MD on 09/06/2023 2:11:33 PM. This study was interpreted by an [facility] accredited facility. ??Final (Updated) ?? Procedure Note Nikko Jimenez MD - 09/06/2023 STRESS ECHOCARDIOGRAM VIVIENNE CASTANO : 1955 68 years Study Date: 09/06/2023 9:29:42 AM Gender: F BP: 116/63 mmHg Height: 175.00 cm BSA: 1.78 m? ? ? Weight: 64.00 kg Tech: [facility] Referring MD: YESICA TRACY Site: [facility] Reading Location: Mobile OP Patient Location: Outpatient. Procedure: Stress Echo, Color Doppler and Limited Spectral Doppler. Brucestress echo. Indication for study: Paroxysmal A-fib Cardiac Rhythm: Regular.Study quality: Good. Final Impressions: 1. Submaximum stress test with 82.6% of age predicted maximum heart rateachieved. 2. During stress exam the patient developed no significant symptoms. 3. See separate report for EKG interpretation. 4. Post stress, normal left ventricular size, increased global systolicfunction with an estimated EF of 70 to 75%. 5. Negative stress echo for ischemia. 6. At rest there is normal left ventricular size and systolic function. 7. The aortic valve is trileaflet and sclerotic, mild stenosis(meangradient 11 mm Hg) and no regurgitation. Stress Data: HR Systolic Diastolic Time Duration Minutes Seconds Baseline 63 bpm 116 63 mmHg 4 :54 Peak 125 bpm 144 65 mmHg Max Pred HR 151 % of Max 83% Double Product [id number] Echo Findings:This is a negative stress echo test for ischemia. Poststress, normal left ventricular size, increased global systolic functionwith an estimated EF of 70 to 75%. LV regional wall motion abnormalitiesare not present post exercise. EKG:See separate report for EKG interpretation. Exam Protocol:The patient presents with no significant symptoms atbaseline. The patient exercised 4 min 54 sec to stage II according to [facility] stress echo protocol. Test terminated due to fatigue and shortnessof breath. 7.0 METS were achieved. The patient achieved a heart rate of125 bpm which is 82.6% of maximum predicted heart rate. Maximum systolicblood pressure was 144 [place] [id number].Submaximum stress test with 82.6% of age predicted maximum heart rateachieved. The blood pressure response was normal. The patient developed nosignificant symptoms during the stress exam. Low (less than 1% annualmortality rate) non invasive risk stratification. Chamber Sizes and Function Normal left ventricular size, normal global systolic function with anestimated EF of 60 - 65%. LV regional wall motion abnormalities are notpresent. Right ventricular cavity size is normal, global systolic RVfunction is normal. RV wall thickness is normal. The right atrium isnormal. The sinus of Valsalva is normal sized. The ascending aorta isnormal sized. Valves, RV Pressures and Diastolic Function The aortic valve is trileaflet and sclerotic, mild stenosis and noregurgitation. The mitral valve is sclerotic, trace mitral regurgitation.The mitral valve peak velocity is 1.22 m/s and the mean gradient is 2.5mmHg. The tricuspid valve is normal in structure. Tricuspid regurgitationis trace. The tricuspid regurgitant velocity is 2.1 m/s, the estimatedright ventricular systolic pressure is 17 mmHg plus right atrialpressure. Masses, Effusion, Shunts There is no pericardial effusion. MEASUREMENTS AND CALCULATIONS 2-D Measurements and LV Function: LVID (d) 4.1 cm LV FS% (2D) 55 % LVID (s) 1.8 cm LVOT diameter 2.4 cm IVS (d) 1.1 cm HR 63 bpm LVPW (d) 1.0 cm Asc Ao 3.1 cm Aortic Valve: Vmax 2.3 m/s CARLOTA (V) 2.56 cm? ? ? VTI 0.51 m CARLOTA (I) 2.55 cm? ? ? LVOT V max 1.3 m/s Max PG 21 mmHg LVOT VTI 0.29 m Mean PG 11 mmHg SV 131 ml Dim Index 0.56 SV index 74 ml/m? ? ? Mitral Valve: MV Mean G 3 mmHg MV VTI 0.47 m Tricuspid Valve and estimated PA pressures: TR Vmax 2.1 m/s TR maxG 17 mmHg . Report modified by Nikko Jimenez MD on 09/06/2023 2:11:33 PM. This study was interpreted by an [facility] accredited facility. Final (Updated) Yesica ARAUJO ECHO ORD * SCAN CORRESP-EKG RESULTS (08/27/2023 9:10 AM CDT) Scanner OTHER * EKG 12 LEAD (08/26/2023 12:00 AM CDT) Yesica ARAUJO EKG ORD * (ABNORMAL) XR DXA BONE DENSITY 2 [...] to assess therapeutic efficacy. Jada Collins PA-C [facility] 07/22/2022 Narrative 07/22/2022 1:05 PM CDT For Patients: Results are automatically released to your [employer] ([employer]) account once available, in compliance with federal regulations. This means that you may see your results before your provider has had a chance to review them. Please allow 2-3 business days for your provider to comment on the results. XR DXA Bone Mineral Density (BMD) EXAM LOCATION: [facility] [address] [facility] [address] PATIENT NAME: Vivienne Castano DATE OF : 1955 EXAM DATE: 07/21/2022 [...] two scanners are made by the same color checker. PROCEDURE: Dual-energy x-ray absorptiometry performed with routine [...] * LIPID PANEL W REFLEX MEASURED LDL [[id number]] (11/11/2015 11:50 AM CDT) CHOLESTEROL,TOTAL 155 100 - 199 mg/dL 11/11/2015 12:19 PM CDT [facility] TRIGLYCERIDES 143 <150 mg/dL 11/11/2015 12:19 PM CDT [facility] HDL CHOLESTEROL 58 >40 mg/dL 11/11/2015 12:19 PM CDT [facility] NON-HDL CHOLESTEROL 97 <145 mg/dl 11/11/2015 12:19 PM CDT [facility] CHOL/HDL RATIO 2.67 <4.50 11/11/2015 12:19 PM CDT [facility] LDL CHOLESTEROL 68 <=130 mg/dL 11/11/2015 12:19 PM CDT [facility] PATIENT STATUS FASTING 11/11/2015 12:19 PM T [facility] Blood BLOOD SPECIMEN / Unknown Venipuncture / Unknown 11/11/2015 11:50 AM CDT 11/11/2015 11:56 AM CDT Daniel Carter MD CHEMISTRY [facility] [place] [address]IP [address] [address] [place] [address] from Last 3 Months or Most Recently Relevant to Health Maintenance Advance Directives * Full Code (Latest Code Status on File) Date Activated Date Inactivated Comments 04/29/2016 2:20 PM 05/01/2016 7:23 PM * Full Code Date Activated Date Inactivated Comments 04/29/2016 7:32 AM 04/29/2016 2:20 PM Care Teams Television Tube Inspector Relationship Specialty Start Date End Date Herminia Rabago PA [address] [place] [id number] PCP - General 10/15/17 Daniel Carter MD General Surgery Bariatric Surgeon 05/19/16 Yesica Tracy MBBS [address] [place] [address] Cardiovascular Disease 08/17/23
--- NOTE | 2023-10-01 07:17 | P.ANES_ITS ---
Anesthesia Charges Start Date/Time Anesthesia Start Date: 10/01/23 Anesthesia Start Time: 06:45 Stop Date/Time Anesthesia Stop Date: 10/01/23 Anesthesia Stop Time: 07:05 Summary Emergency: LEGAL SERVICE SPECIALIST
--- NOTE | 2023-10-01 07:20 | PC.NURSE ---
0655- Time Out 0657- Cardioverted at 200Joules. EKG done, sinus rhythm.
[2023-10-01 07:23] LABS: Chloride* 108 mmol/L (96-114); Sodium* 140 mmol/L (135-149)
--- NOTE | 2023-10-01 07:24 | PC.NURSE ---
Pt's VSS, Adriano 10. in room at bedside. Waiting for lab results.
[2023-10-01 07:26] LABS: Creatinine* 0.5 mg/dL (0.5-1.5); Est. Creatinine Clearance* 57.83; Estimated Glomerular Filt Rate 102 ml/min
[2023-10-01 07:27] LABS: Anion Gap 6 mEq/L (7-15); Basophils Absolute Auto 0.05 K/uL (0.00-0.30); Basophils Percent Auto 0.5 % (0.0-3.0); Blood Urea Nitrogen* 13 mg/dL (7-30); Calcium* 8.7 mg/dL (8.4-10.6); Carbon Dioxide* 26 mmol/L (20-32); Eosinophils Absolute Auto 0.18 K/uL (0.00-0.50); Eosinophils Percent Auto 1.8 % (0.0-7.0); Glucose* 179 mg/dL (60-115); Hematocrit 39.5 % (33.0-51.0); Hemoglobin* 12.5 gm/dL (12.0-16.0); Immature Granulocytes Abs Auto 0.02 K/uL (0.00-0.30); Immature Granulocytes Pct Auto 0.2 %; Lymphocytes Percent Auto 17.4 % (20-44); Mean Corpuscular HGB Conc 32 gm/dL (32-36); Mean Corpuscular Hemoglobin 33 pg (26-34); Mean Corpuscular Volume 103 fL (80-100); Monocytes Percent Auto 7.3 % (0.0-11.0); Neutrophils Percent Auto 72.8 % (42.0-72.0); Platelet Count* 279 K/uL (140-440); RDW Coefficient of Variation % 13.7 % (11.5-15.5); Red Blood Count 3.85 m/uL (4.00-5.20); White Blood Count* 9.84 K/uL (4.50-11.00)
[2023-10-01 07:28] LABS: Slide Review Reflex No
[2023-10-01 07:40] LABS: Troponin I* < 0.01 ng/mL (0.01-0.04)
== END 2023-10-01 08:20 | disposition home or self-care (01) ==
PROVIDERS: Emergency Provider Internal Medicine
DX: I48.20 Chronic atrial fibrillation, unspecified (principal)
CPT/HCPCS: 92960; 00410; 36415; 80048; 84484; 85025; 99140; 99283; 99285; J2704